=== PATIENT | female | born 1995 | race Hispanic/Latino ===

== ENCOUNTER 2018-02-13 15:03 | Emergency (ER) | payer SELFPAY ==
--- NOTE | 2018-02-13 17:39 | RAD REPORT ---
EXAM DESCRIPTION: CT - Stone Protocol - 02/13/2018 5:27 pm CLINICAL HISTORY: Abdominal pain. Lower abdominal pain. COMPARISON: May 2017 TECHNIQUE: Computed axial tomography of the abdomen pelvis was obtained without oral or IV contrast. Lack of IV and oral contrast limits evaluation of solid organs, bowel, and vessels. Coronal reformat scooter images were obtained and reviewed. All CT scans are performed using dose optimization technique as appropriate and may include automated exposure control or mA/KV adjustment according to patient size. FINDINGS: A renal calculus is not seen. An ureteral calculus is not noted. A bladder calculus is not present. The liver, spleen, pancreas and adrenals appear grossly normal There is no evidence of diverticulitis. The appendix is not clearly seen. An adnexal mass is not displayed. IMPRESSION: Negative for a genitourinary calculus
[2018-02-13 18:07] LABS: Absolute Lymphocytes (CBC) 2.9 K/uL (0.7-4.9); Absolute Monocytes 0.7 K/uL (0.1-1.3); Absolute Neutrophil 7.5 K/uL (1.8-8.0); Basophils % 0.5 % (0-1.3); Eosinophils % 4.4 % (0-4.4); Hematocrit 42.1 % (36.0-45.0); Lymphocytes % 24.4 % (15.3-44.8); MCH 28.9 pg (27.0-35.0); MCV 87.7 fL (80-100); MPV 9.3 fL (7.6-11.3); Monocytes % 6.2 % (3.3-12.3)
[2018-02-13 18:11] LABS: Urine Bacteria <20 /HPF (<20); Urine RBC <5 /HPF (NONE SEEN)
[2018-02-13 18:11] LABS: Urine Blood 1+ (NEG); Urine Glucose NEGATIVE (NEG); Urine Protein NEGATIVE (NEG); Urine pH 6.5 (5.0-7.0)
[2018-02-13 18:12] LABS: Urine Culture Reflex Order NOT NEEDED
[2018-02-13 18:23] LABS: ALT/SGPT 22 U/L (12-78); AST/SGOT 17 U/L (15-37); Albumin 3.8 g/dL (3.4-5.0); Alkaline Phosphatase 101 U/L (45-117); BUN Blood Urea Nitrogen 11 mg/dL (7-18); Bicarbonate 26 mmol/L (21-32); Bilirubin Direct < 0.1 mg/dL (0-0.2); Bilirubin Total 0.3 mg/dL (0.2-1.0); Glucose Level 92 mg/dL (74-106); Lipase 94 U/L (73-393); Potassium 3.7 mmol/L (3.5-5.1); Protein, Total 8.1 g/dL (6.4-8.2); Sodium Level 138 mmol/L (136-145)
--- NOTE | 2018-02-13 19:19 | ER ---
Nurse's Notes [facility] Name: Bianca Madera Age: 22 yrs Sex: Female : 1995 Arrival Date: 02/13/2018 Time: 15:05 Bed 14 Private MD: None, None Diagnosis: Unspecified abdominal pain Presentation: 02/13 15:30 Presenting complaint: Patient states: Low back pain that radiates to abdomen x 2 days. hb Denies urinary s/s. Reports normal bowel habits. Transition of care: patient was not received from another setting of care. Onset of symptoms was February 12, 2018. Risk Assessment: Do you want to hurt yourself or someone else? Patient reports no desire to harm self or others. Initial Sepsis Screen: Does the patient meet any 2 criteria? No. Patient's initial sepsis screen is negative. Does the patient have a suspected source of infection? No. Patient's initial sepsis screen is negative. Care prior to arrival: None. 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 - Social history:: Smoking status: Patient/guardian denies using tobacco. - Ebola Screening: : No symptoms or risks identified at this time. Screenin:17 Abuse screen: Denies threats or abuse. Nutritional screening: No deficits noted. mb3 Tuberculosis screening: No symptoms or risk factors identified. Fall Risk None identified. Assessment: 17:10 General: Appears in no apparent distress. comfortable, Behavior is calm, cooperative, mb3 appropriate for age. Pain: Complains of pain in left low back and right low back. Pain: Pain radiates to right lower quadrant and left lower quadrant. Neuro: No deficits noted. Cardiovascular: No deficits noted. Respiratory: No deficits noted. GI: No deficits noted. : Urine is clear, Reports pain in bilateral flank(s). 18:22 Reassessment: Patient appears in no apparent distress at this time. Patient and/or mb3 family updated on plan of care and expected duration. Pain level reassessed. Patient is alert, oriented x 3, equal unlabored respirations, skin warm/dry/pink. 19:05 Reassessment: Report received from YONG Barbosa. bs1 19:05 General: Appears in no apparent distress. comfortable, Behavior is calm, cooperative, bs1 appropriate for age. Pain: Complains of pain in right low back and left low back Pain radiates to left lower quadrant and right lower quadrant. Neuro: Level of Consciousness is awake, alert, obeys commands. Cardiovascular: Heart tones S1 S2 present Capillary refill < 3 seconds Patient's skin is warm and dry. Respiratory: Airway is patent Trachea midline Respiratory effort is even, unlabored, Respiratory pattern is regular, symmetrical, Breath sounds are clear bilaterally. GI: No signs and/or symptoms were reported involving the gastrointestinal system. : Urine is clear, CVA tenderness noted bilaterally Reports pain in bilateral flank(s). EENT: No signs and/or symptoms were reported regarding the EENT system. Derm: Skin is intact, Skin is pink, warm \T\ dry. normal. Musculoskeletal: Circulation, motion, and sensation intact. Capillary refill < 3 seconds, Range of motion: intact in all extremities. 19:55 Reassessment: Patient appears in no apparent distress at this time. Patient and/or bs1 family updated on plan of care and expected duration. Pain level reassessed. Patient is alert, oriented x 3, equal unlabored respirations, skin warm/dry/pink. Patient denies pain at this time. Patient states feeling better. Vital Signs: 15:32 BP 149 / 96; Pulse 90; Resp 16; Temp 97.4; Pulse Ox 100% on R/A; Weight 58.97 kg; hb Height 5 ft. (152.40 cm); Pain 8/10; 18:18 BP 111 / 79; Pulse 70; Resp 16; Pulse Ox 100% ; mb3 19:18 BP 116 / 93; Pulse 88; Resp 16; Temp 98; Pulse Ox 100% on R/A; Pain 0/10; bs1 15:32 Body Mass Index 25.39 (58.97 kg, 152.40 cm) hb ED Course: 15:05 Patient arrived in ED. sb2 15:05 None, None is Private Physician. sb2 15:32 Triage completed. hb 15:32 Arm band placed on right wrist. hb 17:01 Donny Ramsey NP is PHCP. pm1 17:01 Kenny Bone MD is Attending Physician. pm1 17:07 Familia Bolden, RN is Primary Nurse. mb3 17:18 Patient has correct armband on for positive identification. mb3 17:[address] nj 17:27 CT completed. Patient tolerated procedure well. Patient moved back from CT. nj 17:27 CT Stone Protocol In Process Unspecified. EDMS 17:49 Inserted saline lock: 22 gauge in right antecubital area, using aseptic technique. mb3 Blood collected. 19:57 No provider procedures requiring assistance completed. IV discontinued, bleeding bs1 controlled, No redness/swelling at site. Pressure dressing applied. Administered Medications: 19:30 Drug: GI Cocktail without - (Maalox Suspension 30 ml, Lidocaine Liquid 2 % 15 bs1 ml) Route: PO; 19:57 Follow up: Response: No adverse reaction bs1 Outcome: 19:19 Discharge ordered by MD. pm1 19:57 Discharged to home ambulatory. bs1 19:57 Condition: stable 19:57 Discharge instructions given to patient, Instructed on discharge instructions, follow up and referral plans. medication usage, Demonstrated understanding of instructions, follow-up care, medications, Prescriptions given X 1. 19:58 Patient left the ED. bs1 Signatures: Dispatcher [employer] [facility] Donny Ramsey, [employer] SENIOR TECHNICAL TRAINER pm1 Lamar Howell, RN Enzo Dupree Brittany RN RN bs1 Michaelle Seay 2 Familia Bolden, RN RN mb3
--- NOTE | 2018-02-13 19:19 | EDPHYS ---
Physician Documentation [facility] Name: Bianca Madera Age: 22 yrs Sex: Female : 1995 Arrival Date: 02/13/2018 Time: 15:05 Bed 14 Private MD: None, None ED Physician Kenny Bone HPI: 02/13 18:00 This 22 yrs old Female presents to ER via Ambulatory with complaints of Flank pm1 Pain. 18:00 The patient complains of pain in the left low back and right low back. lower abdomen pm1 bilaterally. Onset: The symptoms/episode began/occurred 3 week(s) ago, worse the past 2-3 days. Modifying factors: The symptoms are alleviated by nothing. the symptoms are aggravated by nothing. Associated signs and symptoms: Pertinent negatives: diarrhea, dysuria, fever, headache, nausea, vomiting. The patient has not experienced similar symptoms in the past. The patient has not recently seen a physician. 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 - Social history:: Smoking status: Patient/guardian denies using tobacco. - Ebola Screening: : No symptoms or risks identified at this time. ROS: 18:00 Constitutional: Negative for fever, chills, and weight loss, Eyes: Negative for injury, pm1 pain, redness, and discharge, ENT: Negative for injury, pain, and discharge, Neck: Negative for injury, pain, and swelling, Cardiovascular: Negative for chest pain, palpitations, and edema, Respiratory: Negative for shortness of breath, cough, wheezing, and pleuritic chest pain. 18:00 : Negative for injury, bleeding, discharge, and swelling, MS/Extremity: Negative for injury and deformity, Skin: Negative for injury, rash, and discoloration, Neuro: Negative for headache, weakness, numbness, tingling, and seizure. 18:00 Abdomen/GI: Positive for abdominal pain, Negative for nausea, vomiting, and diarrhea. 18:00 Back: Positive for flank pain, bilaterally. Exam: 18:00 Constitutional: This is a well developed, well nourished patient who is awake, alert, pm1 and in no acute distress. Head/Face: Normocephalic, atraumatic. Eyes: Pupils equal round and reactive to light, extra-ocular motions intact. Lids and lashes normal. Conjunctiva and sclera are non-icteric and not injected. Cornea within normal limits. Periorbital areas with no swelling, redness, or edema. ENT: Nares patent. No nasal discharge, no septal abnormalities noted. Tympanic membranes are normal and external auditory canals are clear. Oropharynx with no redness, swelling, or masses, exudates, or evidence of obstruction, uvula midline. Mucous membranes moist. Neck: Trachea midline, no thyromegaly or masses palpated, and no cervical lymphadenopathy. Supple, full range of motion without nuchal rigidity, or vertebral point tenderness. No Meningismus. Chest/axilla: Normal chest wall appearance and motion. Nontender with no deformity. No lesions are appreciated. Cardiovascular: Regular rate and rhythm with a normal S1 and S2. No gallops, murmurs, or rubs. Normal PMI, no JVD. No pulse deficits. Respiratory: Lungs have equal breath sounds bilaterally, clear to auscultation and percussion. No rales, rhonchi or wheezes noted. No increased work of breathing, no retractions or nasal flaring. 18:00 Skin: Warm, dry with normal turgor. Normal color with no rashes, no lesions, and no evidence of cellulitis. MS/ Extremity: Pulses equal, no cyanosis. Neurovascular intact. Full, normal range of motion. 18:00 Abdomen/GI: Inspection: abdomen appears normal, Bowel sounds: normal, Palpation: abdomen is soft and non-tender, Indicators: McBurney's point is not tender, Abbott's sign is negative, Rovsing's sign is negative, Obturator sign is negative, Psoas sign is negative. 18:00 Back: pain, of the left low back and right low back. 18:00 Neuro: Orientation: is normal, Motor: moves all fours. Vital Signs: 15:32 BP 149 / 96; Pulse 90; Resp 16; Temp 97.4; Pulse Ox 100% on R/A; Weight 58.97 kg; hb Height 5 ft. (152.40 cm); Pain 8/10; 18:18 BP 111 / 79; Pulse 70; Resp 16; Pulse Ox 100% ; mb3 19:18 BP 116 / 93; Pulse 88; Resp 16; Temp 98; Pulse Ox 100% on R/A; Pain 0/10; bs1 15:32 Body Mass Index 25.39 (58.97 kg, 152.40 cm) hb MDM: 17:03 Patient medically screened. rock 17:15 Data reviewed: vital signs. Data interpreted: Pulse oximetry: on room air is 100 %. pm1 Interpretation: normal. 17:15 ED course: Patient refused pain medications offered in ER. pm1 19:00 Special discussion: Based on the patient's Hx, exam, and Dx evaluation, there is no pm1 indication for emergent surgery or inpatient Tx. It is understood by the patient/guardian that if the Sx's persist or worsen they need to return immediately for re-evaluation. 19:18 Counseling: I had a detailed discussion with the patient and/or guardian regarding: the pm1 historical points, exam findings, and any diagnostic results supporting the discharge/admit diagnosis, lab results, radiology results, the need for outpatient follow up, to return to the emergency department if symptoms worsen or persist or if there are any questions or concerns that arise at home. 02/13 16:10 Order name: Urine Microscopic Only; Complete Time: 18:22 snw 02/13 17:14 Order name: Basic Metabolic Panel; Complete Time: 18:25 pm1 02/13 17:14 Order name: CBC with Diff; Complete Time: 18:22 pm02/13 17:14 Order name: Hepatic Function; Complete Time: 18:25 pm02/13 17:14 Order name: Lipase; Complete Time: 18:25 pm02/13 17:38 Order name: Urine Dipstick--Ancillary (enter results); Complete Time: 18:22 ag 02/13 16:10 Order name: Urine Test (obtain specimen); Complete Time: 17:07 snw 02/13 16:10 Order name: Urine Dipstick-Ancillary (obtain specimen); Complete Time: 17:07 snw 02/13 17:14 Order name: IV Saline Lock; Complete Time: 18:27 pm1 02/13 17:14 Order name: Labs collected and sent; Complete Time: 18:27 pm02/13 17:14 Order name: CT Stone Protocol; Complete Time: 17:42 pm1 02/13 17:38 Order name: Urine --Ancillary (enter results); Complete Time: 18:22 ag Administered Medications: 19:30 Drug: GI Cocktail without - (Maalox Suspension 30 ml, Lidocaine Liquid 2 % 15 bs1 ml) Route: PO; 19:57 Follow up: Response: No adverse reaction bs1 Disposition: 02/14 09:41 Co-signature as Attending Physician, Kenny Bone MD I agree with the assessment and [facility] plan of care. Disposition: 02/13/18 19:19 Discharged to Home. Impression: Unspecified abdominal pain. - Condition is Stable. - Discharge Instructions: Abdominal Pain, Adult. - Prescriptions for Pepcid 20 mg Oral Tablet - take 1 tablet by ORAL route every 12 hours for 10 days; 20 tablet. - Medication Reconciliation Form, Thank You Letter, Work release form form. - Follow up: Emergency Department; When: As needed; Reason: Worsening of condition. Follow up: Private Physician; When: 2 - 3 days; Reason: Recheck today's complaints, Continuance of care, Re-evaluation by your physician. - Problem is new. - Symptoms have improved. Signatures: Dispatcher [employer] [facility]NC Kenny Bone MD MD cha Therrien, Shelly, SPEECH AND LANGUAGE SPECIALIST-C SPEECH AND LANGUAGE SPECIALIST-Csnw Donny Ramsey, SNAG GRINDER SNAG GRINDER pm1 Lamar Howell, RN RN Zeny Ames RN RN bs1 Corrections: (The following items were deleted from the chart) 02/13 19:58 19:19 02/13/2018 19:19 Discharged to Home. Impression: Unspecified abdominal pain. bs1 Condition is Stable. Forms are Medication Reconciliation Form, Thank You Letter, Antibiotic Education, Prescription Opioid Use. Follow up: Emergency Department; When: As needed; Reason: Worsening of condition. Follow up: Private Physician; When: 2 - 3 days; Reason: Recheck today's complaints, Continuance of care, Re-evaluation by your physician. Problem is new. Symptoms have improved. pm1
[2018-02-13] MEDS ORDERED: LIDOCAINE VISCOUS 2% SOLN 15 ML UDC ONE (19:30)
[2018-02-13] MEDS ORDERED: MAGNE/ALUM HYDROXD 30 ML UCUP ONE (19:30)
== END 2018-02-13 19:58 | disposition home or self-care (01) ==
LOC: ER 15:03
DX: R10.9 Unspecified abdominal pain (principal)
CPT/HCPCS: 36415; 74176; 76377; 80048; 80076; 81003; 81015; 81025; 83690; 85025; 99284

== ENCOUNTER 2018-10-06 13:46 | Emergency (ER) | payer SELFPAY ==
--- OUTSIDE RECORDS SUMMARY | 2018-10-06 13:59 | XMS REPORT ---
:1995 [facility] [address] [place] [address] [place] [id number] Care Team Providers Name Role Phone Unavailable Unavailable Unavailable Problems This patient has no known problems. Allergies, Adverse Reactions, Alerts This patient has no known allergies or adverse reactions. Medications This patient has no known medications.
[2018-10-06 16:05] LABS: Absolute Lymphocytes (CBC) 2.1 K/uL (0.7-4.9); Absolute Monocytes 0.9 K/uL (0.1-1.3); Absolute Neutrophil 10.4 K/uL (1.8-8.0); Basophils % 0.3 % (0-1.3); Eosinophils % 1.7 % (0-4.4); Hematocrit 40.1 % (36.0-45.0); Lymphocytes % 15.7 % (15.3-44.8); MPV 8.7 fL (7.6-11.3); Monocytes % 6.3 % (3.3-12.3); RBC Red Blood Cell Count 4.57 M/uL (3.86-4.86)
[2018-10-06 16:31] LABS: BUN Blood Urea Nitrogen 9 mg/dL (7-18); Bicarbonate 23 mmol/L (21-32); Glucose Level 86 mg/dL (74-106); Potassium 3.5 mmol/L (3.5-5.1); Sodium Level 137 mmol/L (136-145)
[2018-10-06 16:36] LABS: Urine Bacteria <20 /HPF (<20); Urine Culture Reflex Order NOT NEEDED; Urine Mucus 1+ /HPF (NONE SEEN); Urine RBC <5 /HPF (NONE SEEN)
[2018-10-06 16:43] LABS: HCG, Quantitative 77511 mIU/mL (1-3)
[2018-10-06] MEDS ORDERED: NA CHLORIDE 0.9% 1,000 ML ONE (17:40)
--- NOTE | 2018-10-06 17:47 | RAD REPORT ---
EXAM DESCRIPTION: US - Matter Luis Alberto Tm 1 - 10/06/2018 5:33 pm CLINICAL HISTORY: with pelvic pain COMPARISON: None FINDINGS: The uterus measures 11 x 8 x 10 centimeters. Within this is a gestational sac and pole measuring 6.6 centimeters. Cardiac activity 148 beats per minute. The placenta is posterior. Cephalic presentation Right ovary is normal in size and echotexture. Left ovary not seen. Right and left adnexa unremarkabl e No significant free fluid IMPRESSION: Single live intrauterine with an estimated gestational age 13 weeks 2 days DALE 04/11/2019
--- NOTE | 2018-10-06 17:53 | ER ---
Nurse's Notes [facility] Name: Bianca Madera Age: 23 yrs Sex: Female : 1995 Arrival Date: 10/06/2018 Time: 13:48 Bed 13 Private MD: None, None Diagnosis: 13 weeks gestation of Presentation: 10/06 14:04 Presenting complaint: Patient states: suprapubic pain, left and right flank pain, back sv pain,burning with urination, headache x 2 days. Pt is 13 weeks . Transition of care: patient was not received from another setting of care. Onset of symptoms was October 04, 2018. Care prior to arrival: None. 14:04 Method Of Arrival: Ambulatory sv 14:04 Acuity: BELLA 3 sv 18:40 Risk Assessment: Do you want to hurt yourself or someone else? Patient reports no aj1 desire to harm self or others. Initial Sepsis Screen: Does the patient meet any 2 criteria? No. Patient's initial sepsis screen is negative. Does the patient have a suspected source of infection? No. Patient's initial sepsis screen is negative. Triage Assessment: 14:04 General: Appears in no apparent distress. uncomfortable, well developed, Behavior is sv calm, cooperative, appropriate for age. Pain: Complains of pain in suprapubic area, anterior aspect of right lateral abdomen and anterior aspect of left lateral abdomen Pain currently is 10 out of 10 on a pain scale. Neuro: Level of Consciousness is awake, alert, obeys commands, Oriented to person, place, time, situation, Gait is steady. Respiratory: Respiratory effort is even, unlabored, Respiratory pattern is regular, symmetrical. GI: Reports lower abdominal pain, upper abdominal pain. : Reports burning with urination. X RAY CONSULTANT: 15:51 1, 0, Living 0, LMP 07/05/2018 kb Historical: - Allergies: 14:05 No Known Allergies; sv - PMHx: 14:05 None; sv - PSHx: 14:05 None; sv - Immunization history:: Adult Immunizations up to date. - Social history:: Smoking status: Patient/guardian denies using tobacco. - Ebola Screening: : No symptoms or risks identified at this time. Screenin:10 Abuse screen: Denies threats or abuse. Denies injuries from another. Nutritional aj1 screening: No deficits noted. Tuberculosis screening: No symptoms or risk factors identified. 18:40 Fall Risk None identified. aj1 Assessment: 16:10 General: Appears in no apparent distress. comfortable, Behavior is calm, cooperative, aj1 appropriate for age. Pain: Complains of pain in left lower quadrant and right lower quadrant and suprapubic area. Neuro: Level of Consciousness is awake, alert, obeys commands, Oriented to person, place, time, situation. Cardiovascular: Patient's skin is warm and dry. Respiratory: Airway is patent Respiratory effort is even, unlabored, Respiratory pattern is regular, symmetrical. GI: Abdomen is non-distended, Bowel sounds present X 4 quads. Abd is soft X 4 quads. : No signs and/or symptoms were reported regarding the genitourinary system. EENT: No signs and/or symptoms were reported regarding the EENT system. Derm: No signs and/or symptoms reported regarding the dermatologic system. Skin is pink, warm \T\ dry. normal. Musculoskeletal: No signs and/or symptoms reported regarding the musculoskeletal system. Circulation, motion, and sensation intact. 17:15 Reassessment: Patient appears in no apparent distress at this time. No changes from aj1 previously documented assessment. Patient and/or family updated on plan of care and expected duration. Pain level reassessed. Patient is alert, oriented x 3, equal unlabored respirations, skin warm/dry/pink. 18:15 Reassessment: Patient appears in no apparent distress at this time. No changes from aj1 previously documented assessment. Patient and/or family updated on plan of care and expected duration. Pain level reassessed. Patient is alert, oriented x 3, equal unlabored respirations, skin warm/dry/pink. 18:41 Reassessment: Patient discharge pending completion of IV fluids, patient given aj1 discharge instructions and signed discharge paper work, patient needs IV discontinued when fluids are completed. 19:10 Reassessment: Patient appears in no apparent distress at this time. Patient and/or aj1 family updated on plan of care and expected duration. Pain level reassessed. Patient is alert, oriented x 3, equal unlabored respirations, skin warm/dry/pink. Vital Signs: 14:05 BP 120 / 89; Pulse 87; Resp 18; Temp 98.4; Pulse Ox 100% ; Weight 58.97 kg; Height 5 sv ft. 1 in. (154.94 cm); Pain 10/10; 16:10 BP 127 / 65; Pulse 92; Resp 18; Pulse Ox 97% ; aj1 18:15 BP 116 / 75; Pulse 72; Resp 18; Pulse Ox 97% ; aj1 19:20 BP 108 / 79; Pulse 84; Resp 16; Pulse Ox 100% on R/A; aj1 14:05 Body Mass Index 24.56 (58.97 kg, 154.94 cm) sv ED Course: 13:48 Patient arrived in ED. mr 13:49 None, None is Private Physician. mr 14:05 Triage completed. sv 14:06 Arm band placed on. sv 15:42 Maria De Jesus Mata FNP-C is PHCP. kb 15:42 Kenny Bone MD is Attending Physician. kb 16:00 Bailey Abbasi, RN is Primary Nurse. aj1 16:10 Patient has correct armband on for positive identification. Bed in low position. Call aj1 light in reach. Side rails up X 1. 16:10 No provider procedures requiring assistance completed. Inserted saline lock: 20 gauge aj1 in right antecubital area, using aseptic technique. 17:29 Ultrasound completed. Patient tolerated well. sg3 17:33 Matter Eval Tm 1 In Process Unspecified. EDMS 19:20 IV discontinued, intact, bleeding controlled. aj1 Administered Medications: 17:28 Drug: NS 0.9% 1000 ml Route: IV; Rate: 1000 ml; Site: right antecubital; aj1 19:20 Follow up: IV Status: Completed infusion; IV Intake: 1000ml aj1 Intake: 19:20 IV: 1000ml; Total: 1000ml. aj1 Outcome: 17:52 Discharge ordered by MD. kb 18:40 Condition: good aj1 18:40 Discharge instructions given to patient, Instructed on discharge instructions, follow up and referral plans. Demonstrated understanding of instructions. 19:20 Discharged to home ambulatory. aj1 19:41 Patient left the ED. aj1 Signatures: Dispatcher [employer] EDMS Maria De Jesus Mata FNP-C FNP-Ckb Johnson, Angela RN YONG ajLesley Joya RN YONG lindo Xavier Yolis Escamilla sg3 Corrections: (The following items were deleted from the chart) 14:06 14:05 Resp 18bpm; Pulse Ox 100%; Temp 98.4F; 58.97 kg; Height 5 ft. 1 in.; BMI: 24.5; sv Pain 10; sv
--- NOTE | 2018-10-06 17:53 | EDPHYS ---
Physician Documentation [facility] Name: Bianca Madera Age: 23 yrs Sex: Female : 1995 Arrival Date: 10/06/2018 Time: 13:48 Bed 13 Private MD: None, None ED Physician Kenny Bone HPI: 10/06 15:51 This 23 yrs old Female presents to ER via Ambulatory with complaints of 13 wks kb , Abdominal Pain, Headache. 15:51 The patient presents to the emergency department with abdominal pain, of the right kb lower quadrant and left lower quadrant, that started 10 day(s) ago. course: care: at a clinic, Leakage of Fluid: none appreciated, Ultrasound: the patient has not had an ultrasound, Risk/complications: no obvious risks or complications are appreciated. Previous pregnancies: the patient has never been . Associated signs and symptoms: Pertinent positives: abdominal pain, Pertinent negatives: chest pain, diarrhea, dysuria, fever, frequency, nausea, ruptured membranes, seizure, shortness of breath, vaginal bleeding, vaginal discharge, vomiting. The patient has not experienced similar symptoms in the past. The patient has not recently seen a physician. 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 - Social history:: Smoking status: Patient/guardian denies using tobacco. - Ebola Screening: : No symptoms or risks identified at this time. ROS: 15:48 Constitutional: Negative for fever, chills, and weight loss, ENT: Negative for injury, kb pain, and discharge, Neck: Negative for injury, pain, and swelling, Cardiovascular: Negative for chest pain, palpitations, and edema, Respiratory: Negative for shortness of breath, cough, wheezing, and pleuritic chest pain, Back: Negative for injury and pain, : Negative for injury, bleeding, discharge, and swelling, MS/Extremity: Negative for injury and deformity, Skin: Negative for injury, rash, and discoloration. 15:48 Abdomen/GI: Positive for abdominal pain, Negative for nausea, vomiting, and diarrhea. 15:48 Neuro: Positive for headache, Negative for altered mental status, dizziness, gait disturbance, hearing loss, loss of consciousness, numbness, seizure activity, speech changes, syncope, near syncope, tingling, tinnitus, tremor, visual changes, weakness. Exam: 15:50 Constitutional: This is a well developed, well nourished patient who is awake, alert, kb and in no acute distress. Head/Face: Normocephalic, atraumatic. Chest/axilla: Normal chest wall appearance and motion. Nontender with no deformity. No lesions are appreciated. Cardiovascular: Regular rate and rhythm with a normal S1 and S2. No gallops, murmurs, or rubs. Normal PMI, no JVD. No pulse deficits. Respiratory: Lungs have equal breath sounds bilaterally, clear to auscultation and percussion. No rales, rhonchi or wheezes noted. No increased work of breathing, no retractions or nasal flaring. Back: No spinal tenderness. No costovertebral tenderness. Full range of motion. Skin: Warm, dry with normal turgor. Normal color with no rashes, no lesions, and no evidence of cellulitis. MS/ Extremity: Pulses equal, no cyanosis. Neurovascular intact. Full, normal range of motion. Neuro: Awake and alert, GCS 15, oriented to person, place, time, and situation. Cranial nerves II-XII grossly intact. Motor strength 5/5 in all extremities. Sensory grossly intact. Cerebellar exam normal. Normal gait. 15:50 Abdomen/GI: Inspection: abdomen appears normal, Bowel sounds: normal, in all quadrants, Palpation: soft, in all quadrants, moderate abdominal tenderness, in the right lower quadrant and left lower quadrant. Vital Signs: 14:05 BP 120 / 89; Pulse 87; Resp 18; Temp 98.4; Pulse Ox 100% ; Weight 58.97 kg; Height 5 sv ft. 1 in. (154.94 cm); Pain 10/10; 16:10 BP 127 / 65; Pulse 92; Resp 18; Pulse Ox 97% ; aj1 18:15 BP 116 / 75; Pulse 72; Resp 18; Pulse Ox 97% ; aj1 19:20 BP 108 / 79; Pulse 84; Resp 16; Pulse Ox 100% on R/A; aj1 14:05 Body Mass Index 24.56 (58.97 kg, 154.94 cm) sv MDM: 15:43 Patient medically screened. kb 15:50 Data reviewed: vital signs, nurses notes. Data interpreted: Pulse oximetry: on room air kb is 100 %. Interpretation: normal. 17:52 Counseling: I had a detailed discussion with the patient and/or guardian regarding: the kb historical points, exam findings, and any diagnostic results supporting the discharge/admit diagnosis, lab results, radiology results, the need for outpatient follow up, an OB/Gyne specialist, to return to the emergency department if symptoms worsen or persist or if there are any questions or concerns that arise at home. 10/06 14:12 Order name: Urine Culture snw 10/06 14:12 Order name: Urine Microscopic Only; Complete Time: 16:45 snw 10/06 14:12 Order name: Flu; Complete Time: 15:43 snw 10/06 15:47 Order name: Quantitative Hcg; Complete Time: 16:45 kb 10/06 15:47 Order name: Abo/rh Typing; Complete Time: 16:45 kb 10/06 15:47 Order name: Basic Metabolic Panel; Complete Time: 16:45 kb 10/06 14:12 Order name: Urine Dipstick-Ancillary (obtain specimen); Complete Time: 16:46 snw 10/06 15:47 Order name: CBC with Diff; Complete Time: 16:24 kb 10/06 15:49 Order name: Urine Dipstick--Ancillary (enter results); Complete Time: 18:12 eb 10/06 15:49 Order name: Urine --Ancillary (enter results); Complete Time: 18:12 eb 10/06 17:33 Order name: ABO/RH no charge; Complete Time: 17:34 EDMS 10/06 17:33 Order name: Matter Eval Tm 1; Complete Time: 17:51 EDMS 10/06 15:47 Order name: IV Saline Lock; Complete Time: 16:46 kb 10/06 15:47 Order name: Labs collected and sent; Complete Time: 16:46 kb 10/06 15:47 Order name: NPO; Complete Time: 16:46 kb Administered Medications: 17:28 Drug: NS 0.9% 1000 ml Route: IV; Rate: 1000 ml; Site: right antecubital; aj1 19:20 Follow up: IV Status: Completed infusion; IV Intake: 1000ml aj1 Disposition: 10/06/18 17:52 Discharged to Home. Impression: 13 weeks gestation of . - Condition is Stable. - Discharge Instructions: Second Trimester of , [id number]. - Medication Reconciliation Form, Thank You Letter, Antibiotic Education, Prescription Opioid Use form. - Follow up: Emergency Department; When: As needed; Reason: Worsening of condition. Follow up: Private Physician; When: 2 - 3 days; Reason: Recheck today's complaints, Continuance of care, Re-evaluation by your physician. Addendum: 10/09/2018 07:15 Co-signature as Attending Physician, Kenny Bone MD I agree with the assessment and c crow plan of care. Signatures: Dispatcher [employer] [facility] Maria De Jesus Mata, CLEAN OUT DRILLER HELPER-C CLEAN OUT DRILLER HELPER-Ckb Bailey Abbasi RN YONG aj1 Lesley Higgins RN Kenny Melendez MD MD cha Therrien, Shelly, CLEAN OUT DRILLER HELPER-C CLEAN OUT DRILLER HELPER-Csnw Corrections: (The following items were deleted from the chart) 10/06 17:33 16:46 Transvaginal Ob+US.RAD.BRZ ordered. [facility] EDMA 19:41 17:52 10/06/2018 17:52 Discharged to Home. Impression: 13 weeks gestation of . aj1 Condition is Stable. Forms are Medication Reconciliation Form, Thank You Letter, Antibiotic Education, Prescription Opioid Use. Follow up: Emergency Department; When: As needed; Reason: Worsening of condition. Follow up: Private Physician; When: 2 - 3 days; Reason: Recheck today's complaints, Continuance of care, Re-evaluation by your physician. kb
[2018-10-06 18:11] LABS: Urine Blood TRACE (NEG); Urine Glucose 2+ (NEG); Urine Protein 1+ (NEG); Urine Specific Gravity 1.025 (1.005-1.030)
== END 2018-10-06 19:41 | disposition home or self-care (01) ==
LOC: ER 13:46
DX: O26.891 Other specified pregnancy related conditions, first trimester (principal); R10.31 Right lower quadrant pain; R10.32 Left lower quadrant pain; Z3A.13 13 weeks gestation of pregnancy
CPT/HCPCS: 36415; 76801; 80048; 81003; 81015; 81025; 84702; 85025; 86900; 86901; 87086; 87088; 87804; 96360; 96361; 99284; J7030

== ENCOUNTER 2022-06-12 17:31 | Emergency (ER) | payer OTHER, SELFPAY ==
--- OUTSIDE RECORDS SUMMARY | 2022-06-12 17:38 | XMS REPORT | Continuity of Care Document ---
:1995 Author Organization [facility] t Address [address] [place] [address] Care Team Providers Name Role Phone PEÑA F [facility] Primary Care P hysician Unavailable PJ MARTINEZ Attending Clinician Unavailable NEAH MÉNDEZ Attending Clinician Unavailable Dev Neha JOSEPH Attending Clinician [phone] [facility], [facility] Attending Clinician Unavailable 1, [facility] Room Attending Clinician Unavailable Bruno Llamas MD Attending Clinician [phone] BRUNO LLAMAS Attending Clinician Unavailable STEPHANIE BRADLEY Attending Clinician Unavailable Yanira Brown DO Attending Clinician Stephanie Bradley MD Attending Clinician CHERYL JJ Attending Clinician Unavailable CHERYL JJ Attending Clinician Unavailable Adrián Willson MD Attending Clinician Cheryl Jj MD Attending Clinician Shelly Doll Attending Clinician Unavailable ADRIÁN WILLSON Attending Clinician Unavailable Lab, [facility] Attending Clinician Unavailable 2, [facility] Room Attending Clinician Unavailable Jessica Blackburn Attending Clinician 1, [facility] Room Attending Clinician Unavailable Sorin Keller MD, Sandrine Attending Clinician [phone] SANDRINE KAPLAN Attending Clinician Unavailable IRASEMA MCDANIELS Attending Clinician Unavailable Irasema Mcdaniels MD Attending Clinician Doctor Unassigned, [place] Attending Clinician Unavailable ANDRE NORIEGA Attending Clinician Unavailable Andre Noriega MD Attending Clinician YANIRA BROWN Attending Clinician Unavailable Roberto Dumas Attending Clinician Saw Jj DO Attending Clinician PATITO ACEVEDO Attending Clinician Unavailable Lab, [facility] Attending Clinician Unavailable Birgit Borges Attending Clinician BIRGIT ESCOTO Attending Clinician Unavailable Noah Mcneill Attending Clinician Collins Lees MD Attending Clinician Kesha Mccartney MD Attending Clinician Patito Pate Attending Clinician Ultrasound, Ang-M[facility] Attending Clinician Unavailable STEPHANIE BRADLEY Admitting Clinician Unavailable Stephanie Bradley MD Admitting Clinician ANDRE NORIEGA Admitting Clinician Unavailable IRASEMA MCDANIELS Admitting Clinician Unavailable Collins Lees MD Admitting Clinician Kesha Mccartney MD Admitting Clinician Payers Payer Name Policy Type Policy Number Effective Date Expiration Date S kassiece MEDICAID ALIEN PENDING 2022 PENDING 00:00:00 BLUE ESSENTIALS O [id number] 2020 00:00:00 [facility] [id number] 2016 PLAN MOM CHIP LOW 00:00:00 [employer] [facility] [id number] 2021 CHIP 00:00:00 Problems Condition Condition Condition Status Onset Resolution Last Treating Co mments Source Name Details Category Date Date Treatment Clinician Date Abnormal Abnormal Disease Active 2021-07 Overview: Un bette maternal maternal 1-07 Formattin ity of glucose glucose 00:00: g of this [place] tolerance, tolerance, 00 note Me dical antepartum antepartum might be Branch different from the original. Passed 3hr Known Known Disease Active 2021-07 Overview: Univer s 0-07 Formattin ity of anomaly, anomaly, 00:00: g of this [place] as antepartum antepartum 00 note Me dical might be Branch different from the original. Right hand missing on usg Pain of Pain of Disease Active Univers round round 8-12 ity of ligament ligament 00:00: [place] during during 00 Medical Bran ch Supervisio Supervisio Disease Active U nivers n of n of 5-24 [place] of high-risk [place] [facility] Multiparit Multiparit Disease Active U nivers y y 5-24 ity of 00:00: [place] 00 [facility] Over Over Disease Active 2018-07 Univers weight weight 0-22 ity of 00:00: [place] 00 [facility] Papanicola Papanicola Disease Active 2016-07 Overview : Univers ou smear ou smear 0-03 Formattin ity of of cervix of cervix 00:00: [place] with low with low 00 note Medica l grade grade might be Branch squamous squamous different intraepith intraepith from the elial elial original. lesion lesion Needs (LGSIL) (LGSIL) repeat pap in 1 year (2018) Hepatitis Hepatitis Disease Active 2012-07 Overview: Univers C antibody C antibody 2-30 Formattin ity of test test 00:00: g of this [place] positive positive 00 note Medica l might be Branch different from the original. 06/2013: Pt with + HCV Ab with negative PCR. Consult with Dr Francois. Pt has resolved infection , Pt needs to RTC in 3 months to repeat HCV PCR and if negative x 2, then pt does not need further f/u. Allergies, Adverse Reactions, Alerts Allergy Allergy Status Severity Reaction(s) Onset Inactive Treating Comm ents Source Name Type Date Date Clinician Shrimp Propensi Active Anaphylaxis Uni vers ty to 5-24 ity of adverse 00:00: [place] reaction 00 Medical s Branch SHRIMP DRUG Active Anaphylaxis Unive rs INGREDI 5-24 ity of 00:00: [address] Social History Social Habit Start Date Stop Date Quantity Comments Source ASSERTION 2021-12-01 University 00:00:00 [facility] Exposure to 2022-05-28 2022-06-07 Not sure University SARS-CoV-2 00:00:00 08:11:00 [facility] (event) Branch Alcohol intake 2022-05-31 2022-05-31 Current University of 00:00:00 00:00:00 non-drinker of [facility] alcohol (finding) [place] Tobacco use and 2022-03-05 2022-03-05 Smokeless tobacco Un iversity of exposure 00:00:00 00:00:00 non-user [facility] Sex Ass[birth year] At [birth year] Universit y of 00:00:00 00:00:00 [facility] Smoking Status Start Date Stop Date Source Never smoked tobacco [facility] Medications Ordered Filled Start Stop Current Ordering Indication Dosage Frequency Signature Comments Components Source Medication Medication Date Date Medication? Clinician (SIG) Name Name PNV 67-iron 2021-07 Yes [id number] 1{each} Take 1 Univers ps-folate 0-14 Each by ity of no.1-dha 00:00: mouth [place] (VITAFOL 00 daily. Medical ULTRA) 29 Branch mg iron- 1 mg-200 mg Cap PNV 67-iron 2021-07 Yes [id number] 1{each} Take 1 Univers ps-folate 0-14 Each by ity of no.1-dha 00:00: mouth [place] (VITAFOL 00 daily. Medical ULTRA) 29 Branch mg iron- 1 mg-200 mg Cap PNV 67-iron 2021-07 Yes [id number] 1{each} Take 1 Univers ps-folate 0-14 Each by ity of no.1-dha 00:00: mouth [place] (VITAFOL 00 daily. Medical ULTRA) 29 Branch mg iron- 1 mg-200 mg Cap PNV 67-iron 2021-07 Yes [id number] 1{each} Take 1 Univers ps-folate 0-14 Each by ity of no.1-dha 00:00: mouth [place] (VITAFOL 00 daily. Medical ULTRA) 29 Branch mg iron- 1 mg-200 mg Cap PNV 67-iron 2021-07 Yes [id number] 1{each} Take 1 Univers ps-folate 0-14 Each by ity of no.1-dha 00:00: mouth [place] (VITAFOL 00 daily. Medical ULTRA) 29 Branch mg iron- 1 mg-200 mg Cap PNV 67-iron 2021-07 Yes [id number] 1{each} Take 1 Univers ps-folate 0-14 Each by ity of no.1-dha 00:00: mouth [place] (VITAFOL 00 daily. Medical ULTRA) 29 Branch mg iron- 1 mg-200 mg Cap PNV 67-iron 2021-07 Yes [id number] 1{each} Take 1 Univers ps-folate 0-14 Each by ity of no.1-dha 00:00: mouth [place] (VITAFOL 00 daily. Medical ULTRA) 29 Branch mg iron- 1 mg-200 mg Cap PNV 67-iron 2021-07 Yes [id number] 1{each} Take 1 Univers ps-folate 0-14 Each by ity of no.1-dha 00:00: mouth [place] (VITAFOL 00 daily. Medical ULTRA) 29 Branch mg iron- 1 mg-200 mg Cap PNV 67-iron 2021-07 Yes [id number] 1{each} Take 1 Univers ps-folate 0-14 Each by ity of no.1-dha 00:00: mouth [place] (VITAFOL 00 daily. Medical ULTRA) 29 Branch mg iron- 1 mg-200 mg Cap PNV 67-iron 2021-07 Yes [id number] 1{each} Take 1 Univers ps-folate 0-14 Each by ity of no.1-dha 00:00: mouth [place] (VITAFOL 00 daily. Medical ULTRA) 29 Branch mg iron- 1 mg-200 mg Cap PNV 67-iron 2021-07 Yes [id number] 1{each} Take 1 Univers ps-folate 0-14 Each by ity of no.1-dha 00:00: mouth [place] (VITAFOL 00 daily. Medical ULTRA) 29 Branch mg iron- 1 mg-200 mg Cap PNV 67-iron 2021-07 Yes [id number] 1{each} Take 1 Univers ps-folate 0-14 Each by ity of no.1-dha 00:00: mouth [place] (VITAFOL 00 daily. Medical ULTRA) 29 Branch mg iron- 1 mg-200 mg Cap No known 2021-07 No No known Unive rs medications 0-07 medication it y of 13:43: s [address] No known 2021-1 No No known Unive rs medications 0-07 medication it y of 13:43: s [address] No known 2021-1 No No known Unive rs medications 0-07 medication it y of 13:43: s [address] No known 2021-0 No No known Unive rs medications 9-24 medication it y of 12:37: s [address] No known 2021-0 No No known Unive rs medications 9-09 medication it y of 13:11: s [address] No known 2021-0 No No known Unive rs medications 9-09 medication it y of 13:11: [address] No known 2021-0 No No known Unive rs medications 9- medication it y of 13:11: s [address] Immunizations Ordered Immunization Filled Immunization Date Status Commen ts Source Name Name TD 2022-06-07 Completed [facility] 00:00:00 [facility] TDAP 2022-06-07 Completed [facility] 00:00:00 [facility] Influenza Virus 2020-05-22 Completed Universit y of Vaccine Quad .5 mL 00:00:00 [place] [facility] 6+ MO Branch Influenza Virus 2020-05-22 Completed Universit y of Vaccine Quad .5 mL 00:00:00 [facility] 6+ MO Branch Influenza Virus 2020-05-22 Completed Universit y of Vaccine Quad .5 mL 00:00:00 [place] [facility] 6+ MO Branch Influenza Virus 2020-05-22 Completed Universit y of Vaccine Quad .5 mL 00:00:00 [place] [facility] IM 6+ MO Branch Influenza Virus 2020-05-22 Completed Universit y of Vaccine Quad .5 mL 00:00:00 [place] [facility] IM 6+ MO Branch Influenza Virus 2020-05-22 Completed Universit y of Vaccine Quad .5 mL 00:00:00 [place] [facility] 6+ MO Branch Influenza Virus 2020-05-22 Completed Universit y of Vaccine Quad .5 mL 00:00:00 [place] [facility] IM 6+ MO Branch Influenza Virus 2020-05-22 Completed Universit y of Vaccine Quad .5 mL 00:00:00 [place] [facility] IM 6+ MO Branch Influenza Virus 2020-05-22 Completed Universit y of Vaccine Quad .5 mL 00:00:00 [place] [facility] 6+ MO Branch Influenza Virus 2020-05-22 Completed Universit y of Vaccine Quad .5 mL 00:00:00 [place] [facility] IM 6+ MO Branch Influenza Virus 2020-05-22 Completed Universit y of Vaccine Quad .5 mL 00:00:00 [place] [facility] IM 6+ MO Branch Influenza Virus 2020-05-22 Completed Universit y of Vaccine Quad .5 mL 00:00:00 [place] [facility] 6+ MO Branch Influenza Virus 2020-05-22 Completed Universit y of Vaccine Quad .5 mL 00:00:00 [place] [facility] IM 6+ MO Branch Influenza Virus 2020-05-22 Completed Universit y of Vaccine Quad .5 mL 00:00:00 [place] [facility] 6+ MO Branch Influenza Virus 2020-05-22 Completed Universit y of Vaccine Quad .5 mL 00:00:00 [place] [facility] IM 6+ MO Branch Influenza Virus 2020-05-22 Completed Universit y of Vaccine Quad .5 mL 00:00:00 [place] [facility] 6+ MO Branch Influenza Virus 2020-05-22 Completed Universit y of Vaccine Quad .5 mL 00:00:00 [place] [facility] IM 6+ MO Branch Influenza Virus 2020-05-22 Completed Universit y of Vaccine Quad .5 mL 00:00:00 [place] [facility] IM 6+ MO Branch Influenza Virus 2020-05-22 Completed Universit y of Vaccine Quad .5 mL 00:00:00 [place] [facility] IM 6+ MO Branch Influenza Virus 2019-05-15 Completed Universit y of Vaccine Quad .5 mL 00:00:00 [place] [facility] IM 6+ MO Branch Influenza Virus 2019-05-15 Completed Universit y of Vaccine Quad .5 mL 00:00:00 [place] [facility] IM 6+ MO Branch Influenza Virus 2019-05-15 Completed Universit y of Vaccine Quad .5 mL 00:00:00 [place] [facility] IM 6+ MO Branch Influenza Virus 2019-05-15 Completed Universit y of Vaccine Quad .5 mL 00:00:00 [place] [facility] IM 6+ MO Branch Influenza Virus 2019-05-15 Completed Universit y of Vaccine Quad .5 mL 00:00:00 [place] [facility] 6+ MO Branch Influenza Virus 2019-05-15 Completed Universit y of Vaccine Quad .5 mL 00:00:00 [place] [facility] IM 6+ MO Branch Influenza Virus 2019-05-15 Completed Universit y of Vaccine Quad .5 mL 00:00:00 [place] [facility] IM 6+ MO Branch Influenza Virus 2019-05-15 Completed Universit y of Vaccine Quad .5 mL 00:00:00 [place] [facility] IM 6+ MO Branch Influenza Virus 2019-05-15 Completed Universit y of Vaccine Quad .5 mL 00:00:00 [place] [facility] IM 6+ MO Branch Influenza Virus 2019-05-15 Completed Universit y of Vaccine Quad .5 mL 00:00:00 [place] [facility] IM 6+ MO Branch Influenza Virus 2019-05-15 Completed Universit y of Vaccine Quad .5 mL 00:00:00 [place] [facility] IM 6+ MO Branch Influenza Virus 2019-05-15 Completed Universit y of Vaccine Quad .5 mL 00:00:00 [place] [facility] IM 6+ MO Branch Influenza Virus 2019-05-15 Completed Universit y of Vaccine Quad .5 mL 00:00:00 [place] [facility] IM 6+ MO Branch Influenza Virus 2019-05-15 Completed Universit y of Vaccine Quad .5 mL 00:00:00 [place] [facility] 6+ MO Branch Influenza Virus 2019-05-15 Completed Universit y of Vaccine Quad .5 mL 00:00:00 [place] [facility] IM 6+ MO Branch Influenza Virus 2019-05-15 Completed Universit y of Vaccine Quad .5 mL 00:00:00 [place] [facility] 6+ MO Branch Influenza Virus 2019-05-15 Completed Universit y of Vaccine Quad .5 mL 00:00:00 [place] [facility] 6+ MO Branch Influenza Virus 2019-05-15 Completed Universit y of Vaccine Quad .5 mL 00:00:00 [place] [facility] 6+ MO Branch Influenza Virus 2019-05-15 Completed Universit y of Vaccine Quad .5 mL 00:00:00 [place] [facility] 6+ MO Branch TDAP 2019-01-24 Completed University of 00:00:00 [facility] TDAP 2019-01-24 Completed University of 00:00:00 [place] [facility] [place] TDAP 2019-01-24 Completed University of 00:00:00 [place] [facility] TDAP 2019-01-24 Completed University of 00:00:00 [place] [facility] TDAP 2019-01-24 Completed University of 00:00:00 [facility] Branch TDAP 2019-01-24 Completed University of 00:00:00 [facility] TDAP 2019-01-24 Completed University of 00:00:00 [facility] TDAP 2019-01-24 Completed University of 00:00:00 [facility] TDAP 2019-01-24 Completed University of 00:00:00 [facility] TDAP 2019-01-24 Completed University of 00:00:00 [facility] TDAP 2019-01-24 Completed University of 00:00:00 [facility] TDAP 2019-01-24 Completed University of 00:00:00 [facility] TDAP 2019-01-24 Completed University of 00:00:00 [facility] TDAP 2019-01-24 Completed University of 00:00:00 [facility] TDAP 2019-01-24 Completed University of 00:00:00 [facility] TDAP 2019-01-24 Completed University of 00:00:00 [facility] TDAP 2019-01-24 Completed University of 00:00:00 [facility] TDAP 2019-01-24 Completed University of 00:00:00 [facility] TDAP 2019-01-24 Completed University of 00:00:00 [facility] Meningococcal 2012-06-26 Completed University of Vaccine 00:00:00 [facility] Influenza Virus 2012-06-26 Completed Universit y of Vaccine Nasal 00:00:00 [facility] Meningococcal 2012-06-26 Completed University of Vaccine 00:00:00 [facility] Influenza Virus 2012-06-26 Completed Universit y of Vaccine Nasal 00:00:00 [facility] Meningococcal 2012-06-26 Completed University of Vaccine 00:00:00 [facility] Influenza Virus 2012-06-26 Completed Universit y of Vaccine Nasal 00:00:00 [facility] Meningococcal 2012-06-26 Completed University of Vaccine 00:00:00 [facility] Influenza Virus 2012-06-26 Completed Universit y of Vaccine Nasal 00:00:00 [facility] Meningococcal 2012-06-26 Completed University of Vaccine 00:00:00 [facility] Influenza Virus 2012-06-26 Completed Universit y of Vaccine Nasal 00:00:00 [facility] Meningococcal 2012-06-26 Completed University of Vaccine 00:00:00 [facility] Influenza Virus 2012-06-26 Completed Universit y of Vaccine Nasal 00:00:00 [facility] Meningococcal 2012-06-26 Completed University of Vaccine 00:00:00 [facility] Influenza Virus 2012-06-26 Completed Universit y of Vaccine Nasal 00:00:00 [facility] Meningococcal 2012-06-26 Completed University of Vaccine 00:00:00 [facility] Influenza Virus 2012-06-26 Completed Universit y of Vaccine Nasal 00:00:00 [facility] Meningococcal 2012-06-26 Completed University of Vaccine 00:00:00 [facility] Influenza Virus 2012-06-26 Completed Universit y of Vaccine Nasal 00:00:00 [facility] Meningococcal 2012-06-26 Completed University of Vaccine 00:00:00 [facility] Influenza Virus 2012-06-26 Completed Universit y of Vaccine Nasal 00:00:00 [facility] Meningococcal 2012-06-26 Completed University of Vaccine 00:00:00 [facility] Influenza Virus 2012-06-26 Completed Universit y of Vaccine Nasal 00:00:00 [facility] Meningococcal 2012-06-26 Completed University of Vaccine 00:00:00 [facility] Influenza Virus 2012-06-26 Completed Universit y of Vaccine Nasal 00:00:00 [facility] Meningococcal 2012-06-26 Completed University of Vaccine 00:00:00 [facility] Influenza Virus 2012-06-26 Completed Universit y of Vaccine Nasal 00:00:00 [facility] Meningococcal 2012-06-26 Completed University of Vaccine 00:00:00 [facility] Influenza Virus 2012-06-26 Completed Universit y of Vaccine Nasal 00:00:00 [facility] Meningococcal 2012-06-26 Completed University of Vaccine 00:00:00 [facility] Influenza Virus 2012-06-26 Completed Universit y of Vaccine Nasal 00:00:00 [facility] Meningococcal 2012-06-26 Completed University of Vaccine 00:00:00 [facility] Influenza Virus 2012-06-26 Completed Universit y of Vaccine Nasal 00:00:00 [facility] Meningococcal 2012-06-26 Completed University of Vaccine 00:00:00 [facility] Influenza Virus 2012-06-26 Completed Universit y of Vaccine Nasal 00:00:00 [facility] Meningococcal 2012-06-26 Completed University of Vaccine 00:00:00 [facility] Influenza Virus 2012-06-26 Completed Universit y of Vaccine Nasal 00:00:00 [facility] Meningococcal 2012-06-26 Completed University of Vaccine 00:00:00 [facility] Influenza Virus 2012-06-26 Completed Universit y of Vaccine Nasal 00:00:00 [facility] Influenza Virus 2011-06-14 Completed Universit y of Vaccine Nasal 00:00:00 [facility] Influenza Virus 2011-06-14 Completed Universit y of Vaccine Nasal 00:00:00 [facility] Influenza Virus 2011-06-14 Completed Universit y of Vaccine Nasal 00:00:00 [facility] Influenza Virus 2011-06-14 Completed Universit y of Vaccine Nasal 00:00:00 [facility] Influenza Virus 2011-06-14 Completed Universit y of Vaccine Nasal 00:00:00 [facility] Influenza Virus 2011-06-14 Completed Universit y of Vaccine Nasal 00:00:00 [facility] Influenza Virus 2011-06-14 Completed Universit y of Vaccine Nasal 00:00:00 [facility] Influenza Virus 2011-06-14 Completed Universit y of Vaccine Nasal 00:00:00 [facility] Influenza Virus 2011-06-14 Completed Universit y of Vaccine Nasal 00:00:00 [facility] Influenza Virus 2011-06-14 Completed Universit y of Vaccine Nasal 00:00:00 [facility] Influenza Virus 2011-06-14 Completed Universit y of Vaccine Nasal 00:00:00 [facility] Influenza Virus 2011-06-14 Completed Universit y of Vaccine Nasal 00:00:00 [facility] Influenza Virus 2011-06-14 Completed Universit y of Vaccine Nasal 00:00:00 [facility] Influenza Virus 2011-06-14 Completed Universit y of Vaccine Nasal 00:00:00 [facility] Influenza Virus 2011-06-14 Completed Universit y of Vaccine Nasal 00:00:00 [facility] Influenza Virus 2011-06-14 Completed Universit y of Vaccine Nasal 00:00:00 [facility] Influenza Virus 2011-06-14 Completed Universit y of Vaccine Nasal 00:00:00 [facility] Influenza Virus 2011-06-14 Completed Universit y of Vaccine Nasal 00:00:00 [facility] Influenza Virus 2011-06-14 Completed Universit y of Vaccine Nasal 00:00:00 [facility] TDAP 2009-10-30 Completed University of 00:00:00 [facility] TDAP 2009-10-30 Completed University of 00:00:00 [facility] TDAP 2009-10-30 Completed University of 00:00:00 [facility] TDAP 2009-10-30 Completed University of 00:00:00 [facility] TDAP 2009-10-30 Completed University of 00:00:00 [facility] Branch TDAP 2009-10-30 Completed University of 00:00:00 [facility] Branch TDAP 2009-10-30 Completed University of 00:00:00 [facility] Branch TDAP 2009-10-30 Completed University of 00:00:00 [facility] Branch TDAP 2009-10-30 Completed University of 00:00:00 [facility] Branch TDAP 2009-10-30 Completed University of 00:00:00 [facility] Branch TDAP 2009-10-30 Completed University of 00:00:00 [facility] Branch TDAP 2009-10-30 Completed University of 00:00:00 [facility] Branch TDAP 2009-10-30 Completed University of 00:00:00 [facility] Branch TDAP 2009-10-30 Completed University of 00:00:00 [facility] Branch TDAP 2009-10-30 Completed University of 00:00:00 [facility] Branch TDAP 2009-10-30 Completed University of 00:00:00 [facility] Branch TDAP 2009-10-30 Completed University of 00:00:00 [facility] Branch TDAP 2009-10-30 Completed University of 00:00:00 [facility] Branch TDAP 2009-10-30 Completed University of 00:00:00 [facility] HPV 2008-06-18 Completed University of 00:00:00 [facility] Influenza Virus 2008-06-18 Completed Universit y of Vaccine 00:00:00 [facility] HPV 2008-06-18 Completed University of 00:00:00 [facility] Influenza Virus 2008-06-18 Completed Universit y of Vaccine 00:00:00 [facility] HPV 2008-06-18 Completed University of 00:00:00 [facility] Influenza Virus 2008-06-18 Completed Universit y of Vaccine 00:00:00 [facility] HPV 2008-06-18 Completed University of 00:00:00 [facility] Influenza Virus 2008-06-18 Completed Universit y of Vaccine 00:00:00 [facility] HPV 2008-06-18 Completed University of 00:00:00 [facility] Influenza Virus 2008-06-18 Completed Universit y of Vaccine 00:00:00 [facility] HPV 2008-06-18 Completed University of 00:00:00 [facility] [facility] Influenza Virus 2008-06-18 Completed [facility] Vaccine 00:00:00 [facility] HPV 2008-06-18 Completed [facility] 00:00:00 [facility] Influenza Virus 2008-06-18 Completed [facility] Vaccine 00:00:00 [facility] HPV 2008-06-18 Completed [facility] 00:00:00 [facility] Influenza Virus 2008-06-18 Completed [facility] Vaccine 00:00:00 [facility] HPV 2008-06-18 Completed [facility] 00:00:00 [facility] Influenza Virus 2008-06-18 Completed [facility] Vaccine 00:00:00 [facility] HPV 2008-06-18 Completed [facility] 00:00:00 [facility] Influenza Virus 2008-06-18 Completed [facility] Vaccine 00:00:00 [facility] HPV 2008-06-18 Completed [facility] 00:00:00 [facility] Influenza Virus 2008-06-18 Completed [facility] Vaccine 00:00:00 [facility] HPV 2008-06-18 Completed [facility] 00:00:00 [facility] Influenza Virus 2008-06-18 Completed [facility] Vaccine 00:00:00 [facility] HPV 2008-06-18 Completed [facility] 00:00:00 [facility] Influenza Virus 2008-06-18 Completed [facility] Vaccine 00:00:00 [facility] HPV 2008-06-18 Completed [facility] 00:00:00 [facility] Influenza Virus 2008-06-18 Completed [facility] Vaccine 00:00:00 [facility] HPV 2008-06-18 Completed [facility] 00:00:00 [facility] Influenza Virus 2008-06-18 Completed [facility] Vaccine 00:00:00 [facility] HPV 2008-06-18 Completed [facility] 00:00:00 [facility] Influenza Virus 2008-06-18 Completed [facility] Vaccine 00:00:00 [facility] HPV 2008-06-18 Completed [facility] 00:00:00 [facility] Influenza Virus 2008-06-18 Completed [facility] Vaccine 00:00:00 [facility] HPV 2008-06-18 Completed [facility] 00:00:00 [facility] Influenza Virus 2008-06-18 Completed [facility] Vaccine 00:00:00 [facility] HPV 2008-06-18 Completed [facility] 00:00:00 [facility] Influenza Virus 2008-06-18 Completed [facility] Vaccine 00:00:00 [facility] Influenza Virus 2007-06-14 Completed [facility] Vaccine - Whole 00:00:00 [facility] HPV 2007-06-14 Completed [facility] 00:00:00 [facility] Influenza Virus 2007-06-14 Completed [facility] Vaccine - Whole 00:00:00 [facility] HPV 2007-06-14 Completed [facility] 00:00:00 [facility] Influenza Virus 2007-06-14 Completed [facility] Vaccine - Whole 00:00:00 [facility] HPV 2007-06-14 Completed [facility] 00:00:00 [facility] Influenza Virus 2007-06-14 Completed [facility] Vaccine - Whole 00:00:00 [facility] HPV 2007-06-14 Completed [facility] 00:00:00 [facility] Influenza Virus 2007-06-14 Completed [facility] Vaccine - Whole 00:00:00 [facility] HPV 2007-06-14 Completed [facility] 00:00:00 [facility] Meningococcal 2007-04-14 Completed [facility] of Vaccine 00:00:00 [facility] HPV 2007-04-14 Completed [facility] 00:00:00 [facility] Meningococcal 2007-04-14 Completed [facility] Vaccine 00:00:00 [facility] HPV 2007-04-14 Completed [facility] 00:00:00 [facility] Meningococcal 2007-04-14 Completed [facility] Vaccine 00:00:00 [facility] HPV 2007-04-14 Completed [facility] 00:00:00 [facility] Meningococcal 2007-04-14 Completed [facility] Vaccine 00:00:00 [facility] HPV 2007-04-14 Completed [facility] 00:00:00 [facility] Meningococcal 2007-04-14 Completed [facility] Vaccine 00:00:00 [facility] HPV 2007-04-14 Completed [facility] 00:00:00 [facility] HEPATITIS A 2006-08-31 Completed [facility] 00:00:00 [facility] Varicella 2006-08-31 Completed [facility] of (varivax)(chicken 00:00:00 [place] [facility]ox[facility] [place] HEPATITIS A 2006-08-31 Completed [facility] 00:00:00 [facility] Varicella 2006-08-31 Completed [facility] (varivax)(chicken 00:00:00 [place] [facility] pox[facility] [place] HEPATITIS A 2006-08-31 Completed [facility] 00:00:00 [facility] Varicella 2006-08-31 Completed [facility] (varivax)(chicken 00:00:00 [place] [facility] HEPATITIS A 2006-08-31 Completed [facility] 00:00:00 [facility] Varicella 2006-08-31 Completed [facility] (varivax)(chicken 00:00:00 [place] [facility] HEPATITIS A 2006-08-31 Completed [facility] 00:00:00 [facility] Varicella 2006-08-31 Completed [facility] (varivax)(chicken 00:00:00 [place] [facility] p[facility] HEPATITIS A 2006-08-31 Completed [facility] 00:00:00 [facility] Varicella 2006-08-31 Completed [facility] (varivax)(chicken 00:00:00 [place] [facility] p[facility] HEPATITIS A 2006-08-31 Completed [facility] 00:00:00 [facility] Varicella 2006-08-31 Completed [facility] (varivax)(chicken 00:00:00 [place] [facility] pox[facility] HEPATITIS A 2006-08-31 Completed [facility] 00:00:00 [facility] Varicella 2006-08-31 Completed [facility] (varivax)(chicken 00:00:00 [place] [facility] pox[facility] HEPATITIS A 2006-08-31 Completed [facility] 00:00:00 [facility] Varicella 2006-08-31 Completed [facility] (varivax)(chicken 00:00:00 [place] [facility] pox[facility] HEPATITIS A 2006-08-31 Completed [facility] 00:00:00 [facility] Varicella 2006-08-31 Completed [facility] (varivax)(chicken 00:00:00 [place] [facility] pox[facility] HEPATITIS A 2006-08-31 Completed [facility] 00:00:00 [facility] Varicella 2006-08-31 Completed [facility] (varivax)(chicken 00:00:00 [place] [facility] pox[facility] HEPATITIS A 2006-08-31 Completed [facility] 00:00:00 [facility] Varicella 2006-08-31 Completed [facility] (varivax)(chicken 00:00:00 [place] [facility] pox[facility] HEPATITIS A 2006-08-31 Completed [facility] 00:00:00 [facility] Varicella 2006-08-31 Completed [facility] (varivax)(chicken 00:00:00 [place] [facility] pox[facility] HEPATITIS A 2006-08-31 Completed [facility] 00:00:00 [facility] Varicella 2006-08-31 Completed [facility] (varivax)(chicken 00:00:00 [place] [facility] pox[facility] HEPATITIS A 2006-08-31 Completed [facility] 00:00:00 [facility] Varicella 2006-08-31 Completed [facility] (varivax)(chicken 00:00:00 [place] [facility] pox[facility] HEPATITIS A 2006-08-31 Completed [facility] 00:00:00 [facility] Varicella 2006-08-31 Completed [facility] (varivax)(chicken 00:00:00 [place] [facility] pox[facility] HEPATITIS A 2006-08-31 Completed [facility] 00:00:00 [facility] Varicella 2006-08-31 Completed [facility] (varivax)(chicken 00:00:00 [place] [facility] pox[facility] HEPATITIS A 2006-08-31 Completed [facility] 00:00:00 [facility] Varicella 2006-08-31 Completed [facility] (varivax)(chicken 00:00:00 [place] [facility] pox[facility] HEPATITIS A 2006-08-31 Completed [facility] 00:00:00 [facility] Varicella 2006-08-31 Completed [facility] (varivax)(chicken 00:00:00 [place] [facility] pox[facility] Varicella 2006-02-16 Completed [facility] (varivax)(chicken 00:00:00 [place] [facility] pox[facility] HEPATITIS A 2006-02-16 Completed [facility] 00:00:00 [facility] Varicella 2006-02-16 Completed [facility] (varivax)(chicken 00:00:00 [place] [facility] pox[facility] HEPATITIS A 2006-02-16 Completed [facility] 00:00:00 [facility] Varicella 2006-02-16 Completed [facility] (varivax)(chicken 00:00:00 [place] [facility] pox[facility] HEPATITIS A 2006-02-16 Completed [facility] 00:00:00 [facility] Varicella 2006-02-16 Completed [facility] (varivax)(chicken 00:00:00 [place] [facility] pox[facility] HEPATITIS A 2006-02-16 Completed [facility] 00:00:00 [facility] Varicella 2006-02-16 Completed [facility] (varivax)(chicken 00:00:00 [place] [facility] pox[facility] HEPATITIS A 2006-02-16 Completed [facility] 00:00:00 [facility] Td 2003-11-20 Completed [facility] 00:00:00 [facility] Td 2003-11-20 Completed [facility] 00:00:00 [facility] Td 2003-11-20 Completed [facility] 00:00:00 [facility] Td 2003-11-20 Completed [facility] 00:00:00 [facility] Td 2003-11-20 Completed [facility] 00:00:00 [facility] Td 2003-11-20 Completed [facility] 00:00:00 [facility] Td 2003-11-20 Completed [facility] 00:00:00 [facility] Td 2003-11-20 Completed [facility] 00:00:00 [facility] Td 2003-11-20 Completed [facility] 00:00:00 [facility] Td 2003-11-20 Completed [facility] 00:00:00 [facility] Td 2003-11-20 Completed [facility] 00:00:00 [facility] Td 2003-11-20 Completed [facility] 00:00:00 [facility] Td 2003-11-20 Completed [facility] 00:00:00 [facility] Td 2003-11-20 Completed [facility] 00:00:00 [facility] Td 2003-11-20 Completed [facility] 00:00:00 [facility] Td 2003-11-20 Completed [facility] 00:00:00 [facility] Td 2003-11-20 Completed [facility] 00:00:00 [facility] Td 2003-11-20 Completed [facility] 00:00:00 [facility] Td 2003-11-20 Completed [facility] 00:00:00 [facility] Hep B, Adol or Pedi 2003-09-30 Completed Unive rsity of Dosage 00:00:00 [facility] Hep B, Adol or Pedi 2003-09-30 Completed Unive rsity of Dosage 00:00:00 [facility] Hep B, Adol or Pedi 2003-09-30 Completed Unive rsity of Dosage 00:00:00 [facility] Hep B, Adol or Pedi 2003-09-30 Completed Unive rsity of Dosage 00:00:00 [facility] Hep B, Adol or Pedi 2003-09-30 Completed Unive rsity of Dosage 00:00:00 [facility] Hep B, Adol or Pedi 2003-09-30 Completed Unive rsity of Dosage 00:00:00 [facility] Hep B, Adol or Pedi 2003-09-30 Completed Unive rsity of Dosage 00:00:00 [facility] Hep B, Adol or Pedi 2003-09-30 Completed Unive rsity of Dosage 00:00:00 [facility] Hep B, Adol or Pedi 2003-09-30 Completed Unive rsity of Dosage 00:00:00 [facility] Hep B, Adol or Pedi 2003-09-30 Completed Unive rsity of Dosage 00:00:00 [facility] Hep B, Adol or Pedi 2003-09-30 Completed Unive rsity of Dosage 00:00:00 [facility] Hep B, Adol or Pedi 2003-09-30 Completed Unive rsity of Dosage 00:00:00 [facility] Hep B, Adol or Pedi 2003-09-30 Completed Unive rsity of Dosage 00:00:00 [facility] Hep B, Adol or Pedi 2003-09-30 Completed Unive rsity of Dosage 00:00:00 [facility] Hep B, Adol or Pedi 2003-09-30 Completed Unive rsity of Dosage 00:00:00 [facility] Hep B, Adol or Pedi 2003-09-30 Completed Unive rsity of Dosage 00:00:00 [facility] Hep B, Adol or Pedi 2003-09-30 Completed Unive rsity of Dosage 00:00:00 [facility] Hep B, Adol or Pedi 2003-09-30 Completed Unive rsity of Dosage 00:00:00 [facility] Hep B, Adol or Pedi 2003-09-30 Completed Unive rsity of Dosage 00:00:00 [facility] Polio (IPV/OPV) 2003-08-05 Completed [facility] 00:00:00 [facility] Polio (IPV/OPV) 2003-08-05 Completed [facility] 00:00:00 [facility] Polio (IPV/OPV) 2003-08-05 Completed [facility] 00:00:00 [facility] Polio (IPV/OPV) 2003-08-05 Completed [facility] 00:00:00 [facility] Polio (IPV/OPV) 2003-08-05 Completed [facility] 00:00:00 [facility] Polio (IPV/OPV) 2003-08-05 Completed [facility] 00:00:00 [facility] Polio (IPV/OPV) 2003-08-05 Completed [facility] 00:00:00 [facility] Polio (IPV/OPV) 2003-08-05 Completed [facility] 00:00:00 [facility] Polio (IPV/OPV) 2003-08-05 Completed [facility] 00:00:00 [facility] Polio (IPV/OPV) 2003-08-05 Completed [facility] 00:00:00 [facility] Polio (IPV/OPV) 2003-08-05 Completed [facility] 00:00:00 [facility] Polio (IPV/OPV) 2003-08-05 Completed [facility] 00:00:00 [facility] Polio (IPV/OPV) 2003-08-05 Completed [facility] 00:00:00 [facility] Polio (IPV/OPV) 2003-08-05 Completed [facility] 00:00:00 [facility] Polio (IPV/OPV) 2003-08-05 Completed [facility] 00:00:00 [facility] Polio (IPV/OPV) 2003-08-05 Completed [facility] 00:00:00 [facility] Polio (IPV/OPV) 2003-08-05 Completed [facility] 00:00:00 [facility] Polio (IPV/OPV) 2003-08-05 Completed [facility] 00:00:00 [facility] Polio (IPV/OPV) 2003-08-05 Completed [facility] 00:00:00 [facility] Hep B, Adol or Pedi 2003-05-13 Completed Unive rsity of Dosage 00:00:00 [facility] MMR 2003-05-13 Completed [facility] 00:00:00 [facility] Polio (IPV/OPV) 2003-05-13 Completed [facility] 00:00:00 [facility] Td 2003-05-13 Completed [facility] 00:00:00 [facility] Hep B, Adol or Pedi 2003-05-13 Completed Unive rsity of Dosage 00:00:00 [facility] MMR 2003-05-13 Completed [facility] 00:00:00 [facility] Polio (IPV/OPV) 2003-05-13 Completed [facility] 00:00:00 [facility] Td 2003-05-13 Completed [facility] 00:00:00 [facility] Hep B, Adol or Pedi 2003-05-13 Completed Unive rsity of Dosage 00:00:00 [facility] MMR 2003-05-13 Completed [facility] 00:00:00 [facility] Polio (IPV/OPV) 2003-05-13 Completed [facility] 00:00:00 [facility] Td 2003-05-13 Completed [facility] 00:00:00 [facility] Hep B, Adol or Pedi 2003-05-13 Completed Unive rsity of Dosage 00:00:00 [facility] MMR 2003-05-13 Completed [facility] 00:00:00 [facility] Polio (IPV/OPV) 2003-05-13 Completed [facility] 00:00:00 [facility] Td 2003-05-13 Completed [facility] 00:00:00 [facility] Hep B, Adol or Pedi 2003-05-13 Completed Unive rsity of Dosage 00:00:00 [facility] MMR 2003-05-13 Completed [facility] 00:00:00 [facility] Polio (IPV/OPV) 2003-05-13 Completed [facility] 00:00:00 [facility] Td 2003-05-13 Completed [facility] 00:00:00 [facility] Hep B, Adol or Pedi 2003-05-13 Completed Unive rsity of Dosage 00:00:00 [facility] MMR 2003-05-13 Completed [facility] 00:00:00 [facility] Polio (IPV/OPV) 2003-05-13 Completed [facility] 00:00:00 [facility] Td 2003-05-13 Completed [facility] 00:00:00 [facility] Hep B, Adol or Pedi 2003-05-13 Completed Unive rsity of Dosage 00:00:00 [facility] MMR 2003-05-13 Completed [facility] 00:00:00 [facility] Polio (IPV/OPV) 2003-05-13 Completed [facility] 00:00:00 [facility] Td 2003-05-13 Completed [facility] 00:00:00 [facility] Hep B, Adol or Pedi 2003-05-13 Completed Unive rsity of Dosage 00:00:00 [facility] MMR 2003-05-13 Completed [facility] 00:00:00 [facility] Polio (IPV/OPV) 2003-05-13 Completed [facility] 00:00:00 [facility] Td 2003-05-13 Completed [facility] 00:00:00 [facility] Hep B, Adol or Pedi 2003-05-13 Completed Unive rsity of Dosage 00:00:00 [facility] MMR 2003-05-13 Completed [facility] 00:00:00 [facility] Polio (IPV/OPV) 2003-05-13 Completed [facility] 00:00:00 [facility] Td 2003-05-13 Completed [facility] 00:00:00 [facility] Hep B, Adol or Pedi 2003-05-13 Completed Unive rsity of Dosage 00:00:00 [facility] MMR 2003-05-13 Completed [facility] 00:00:00 [facility] Polio (IPV/OPV) 2003-05-13 Completed [facility] 00:00:00 [facility] Td 2003-05-13 Completed [facility] 00:00:00 [facility] Hep B, Adol or Pedi 2003-05-13 Completed Unive rsity of Dosage 00:00:00 [facility] MMR 2003-05-13 Completed [facility] 00:00:00 [facility] Polio (IPV/OPV) 2003-05-13 Completed [facility] 00:00:00 [facility] Td 2003-05-13 Completed [facility] 00:00:00 [facility] Hep B, Adol or Pedi 2003-05-13 Completed Unive rsity of Dosage 00:00:00 [facility] MMR 2003-05-13 Completed [facility] 00:00:00 [facility] Polio (IPV/OPV) 2003-05-13 Completed [facility] 00:00:00 [facility] Td 2003-05-13 Completed [facility] 00:00:00 [facility] Hep B, Adol or Pedi 2003-05-13 Completed Unive rsity of Dosage 00:00:00 [facility] MMR 2003-05-13 Completed [facility] 00:00:00 [facility] Polio (IPV/OPV) 2003-05-13 Completed [facility] 00:00:00 [facility] Td 2003-05-13 Completed [facility] 00:00:00 [facility] Hep B, Adol or Pedi 2003-05-13 Completed Unive rsity of Dosage 00:00:00 [facility] MMR 2003-05-13 Completed [facility] 00:00:00 [facility] Polio (IPV/OPV) 2003-05-13 Completed [facility] 00:00:00 [facility] Td 2003-05-13 Completed [facility] 00:00:00 [facility] Hep B, Adol or Pedi 2003-05-13 Completed Unive rsity of Dosage 00:00:00 [facility] MMR 2003-05-13 Completed [facility] 00:00:00 [facility] Polio (IPV/OPV) 2003-05-13 Completed [facility] 00:00:00 [facility] Td 2003-05-13 Completed [facility] 00:00:00 [facility] Hep B, Adol or Pedi 2003-05-13 Completed Unive rsity of Dosage 00:00:00 [facility] MMR 2003-05-13 Completed [facility] 00:00:00 [facility] Polio (IPV/OPV) 2003-05-13 Completed [facility] 00:00:00 [facility] Td 2003-05-13 Completed [facility] 00:00:00 [facility] Hep B, Adol or Pedi 2003-05-13 Completed Unive rsity of Dosage 00:00:00 [facility] MMR 2003-05-13 Completed [facility] 00:00:00 [facility] Polio (IPV/OPV) 2003-05-13 Completed [facility] 00:00:00 [facility] Td 2003-05-13 Completed [facility] 00:00:00 [facility] Hep B, Adol or Pedi 2003-05-13 Completed [facility]ive rsity of Dosage 00:00:00 [facility] MMR 2003-05-13 Completed [facility] 00:00:00 [facility] Polio (IPV/OPV) 2003-05-13 Completed [facility] 00:00:00 [facility] Td 2003-05-13 Completed [facility] 00:00:00 [facility] Hep B, Adol or Pedi 2003-05-13 Completed [facility]ive rsity of Dosage 00:00:00 [facility] MMR 2003-05-13 Completed [facility] 00:00:00 [facility] Polio (IPV/OPV) 2003-05-13 Completed [facility] 00:00:00 [facility] Td 2003-05-13 Completed [facility] 00:00:00 [facility] Hep B, Adol or Pedi 2003-03-11 Completed [facility] rs[facility] of Dosage 00:00:00 [facility] MMR 2003-03-11 Completed [facility] 00:00:00 [facility] Polio (IPV/OPV) 2003-03-11 Completed [facility] 00:00:00 [facility] Td 2003-03-11 Completed [facility] 00:00:00 [facility] Hep B, Adol or Pedi 2003-03-11 Completed [facility]ive rs[facility] of Dosage 00:00:00 [facility] MMR 2003-03-11 Completed [facility] 00:00:00 [facility] Polio (IPV/OPV) 2003-03-11 Completed [facility] 00:00:00 [facility] Td 2003-03-11 Completed [facility] 00:00:00 [facility] Hep B, Adol or Pedi 2003-03-11 Completed [facility] of Dosage 00:00:00 [facility] MMR 2003-03-11 Completed [facility] 00:00:00 [facility] Polio (IPV/OPV) 2003-03-11 Completed [facility] 00:00:00 [facility] Td 2003-03-11 Completed [facility] 00:00:00 [facility] Hep B, Adol or Pedi 2003-03-11 Completed [facility]ive rs[facility] of Dosage 00:00:00 [facility] MMR 2003-03-11 Completed [facility] 00:00:00 [facility] Polio (IPV/OPV) 2003-03-11 Completed [facility] 00:00:00 [facility] Td 2003-03-11 Completed [facility] 00:00:00 [facility] Hep B, Adol or Pedi 2003-03-11 Completed [facility] of Dosage 00:00:00 [facility] MMR 2003-03-11 Completed [facility] 00:00:00 [facility] Polio (IPV/OPV) 2003-03-11 Completed [facility] 00:00:00 [facility] Td 2003-03-11 Completed University of 00:00:00 [facility] Hep B, Adol or Pedi 2003-03-11 Completed Unive rsity of Dosage 00:00:00 [facility] MMR 2003-03-11 Completed University of 00:00:00 [facility] Polio (IPV/OPV) 2003-03-11 Completed Universit y of 00:00:00 [facility] Td 2003-03-11 Completed University of 00:00:00 [facility] Hep B, Adol or Pedi 2003-03-11 Completed Unive rsity of Dosage 00:00:00 [facility] MMR 2003-03-11 Completed University of 00:00:00 [facility] Polio (IPV/OPV) 2003-03-11 Completed Universit y of 00:00:00 [facility] Td 2003-03-11 Completed University of 00:00:00 [facility] Hep B, Adol or Pedi 2003-03-11 Completed Unive rsity of Dosage 00:00:00 [facility] MMR 2003-03-11 Completed University of 00:00:00 [facility] Polio (IPV/OPV) 2003-03-11 Completed Universit y of 00:00:00 [facility] Td 2003-03-11 Completed University of 00:00:00 [facility] Hep B, Adol or Pedi 2003-03-11 Completed Unive rsity of Dosage 00:00:00 [facility] MMR 2003-03-11 Completed University of 00:00:00 [facility] Polio (IPV/OPV) 2003-03-11 Completed Universit y of 00:00:00 [facility] Td 2003-03-11 Completed University of 00:00:00 [facility] Hep B, Adol or Pedi 2003-03-11 Completed Unive rsity of Dosage 00:00:00 [facility] MMR 2003-03-11 Completed University of 00:00:00 [facility] Polio (IPV/OPV) 2003-03-11 Completed Universit y of 00:00:00 [facility] Td 2003-03-11 Completed University of 00:00:00 [facility] Hep B, Adol or Pedi 2003-03-11 Completed Unive rsity of Dosage 00:00:00 [facility] MMR 2003-03-11 Completed University of 00:00:00 [facility] Polio (IPV/OPV) 2003-03-11 Completed Universit y of 00:00:00 [facility] Td 2003-03-11 Completed University of 00:00:00 [facility] Hep B, Adol or Pedi 2003-03-11 Completed Unive rsity of Dosage 00:00:00 [facility] MMR 2003-03-11 Completed University of 00:00:00 [facility] Polio (IPV/OPV) 2003-03-11 Completed Universit y of 00:00:00 [facility] Td 2003-03-11 Completed University of 00:00:00 [facility] Hep B, Adol or Pedi 2003-03-11 Completed Unive rsity of Dosage 00:00:00 [facility] MMR 2003-03-11 Completed University of 00:00:00 [facility] Polio (IPV/OPV) 2003-03-11 Completed Universit y of 00:00:00 [facility] Td 2003-03-11 Completed University of 00:00:00 [facility] Hep B, Adol or Pedi 2003-03-11 Completed Unive rsity of Dosage 00:00:00 [facility] MMR 2003-03-11 Completed University of 00:00:00 [facility] Polio (IPV/OPV) 2003-03-11 Completed Universit y of 00:00:00 [facility] Td 2003-03-11 Completed University of 00:00:00 [facility] Hep B, Adol or Pedi 2003-03-11 Completed Unive rsity of Dosage 00:00:00 [facility] MMR 2003-03-11 Completed University of 00:00:00 [facility] Polio (IPV/OPV) 2003-03-11 Completed Universit y of 00:00:00 [facility] Td 2003-03-11 Completed University of 00:00:00 [facility] Hep B, Adol or Pedi 2003-03-11 Completed Unive rsity of Dosage 00:00:00 [facility] MMR 2003-03-11 Completed University of 00:00:00 [facility] Polio (IPV/OPV) 2003-03-11 Completed Universit y of 00:00:00 [facility] Td 2003-03-11 Completed University of 00:00:00 [facility] Hep B, Adol or Pedi 2003-03-11 Completed Unive rsity of Dosage 00:00:00 [facility] MMR 2003-03-11 Completed University of 00:00:00 [facility] Polio (IPV/OPV) 2003-03-11 Completed Universit y of 00:00:00 [facility] Td 2003-03-11 Completed University of 00:00:00 [facility] Hep B, Adol or Pedi 2003-03-11 Completed Unive rsity of Dosage 00:00:00 [facility] MMR 2003-03-11 Completed University of 00:00:00 [facility] Polio (IPV/OPV) 2003-03-11 Completed Universit y of 00:00:00 [facility] Td 2003-03-11 Completed University of 00:00:00 [facility] Hep B, Adol or Pedi 2003-03-11 Completed Unive rsity of Dosage 00:00:00 [facility] MMR 2003-03-11 Completed University of 00:00:00 [facility] Polio (IPV/OPV) 2003-03-11 Completed Universit y of 00:00:00 [facility] Td 2003-03-11 Completed University of 00:00:00 [facility] Vital Signs Vital Name Observation Time Observation Value Comments Source Systolic blood 2022-06-07 14:12:00 108 mm[Hg] Univer sity of pressure [facility] Diastolic blood 2022-06-07 14:12:00 74 mm[Hg] Unive rsity of pressure [facility] Heart rate 2022-06-07 14:12:00 93 /min Univers[facility] Body temperature 2022-06-07 14:12:00 36.33 Letty Univ ersity of [facility] Respiratory rate 2022-06-07 14:12:00 18 /min Univ ersity of [facility] Body weight 2022-06-07 14:12:00 73.12 kg [facility] BMI 2022-06-07 14:12:00 29.48 kg[facility]m2 [facility] Systolic blood 2022-05-28 18:21:00 111 mm[Hg] Univer sity of pressure [facility] Diastolic blood 2022-05-28 18:21:00 73 mm[Hg] Unive rsity of pressure [facility] Heart rate 2022-05-28 18:21:00 98 /min Universi [facility] Body temperature 2022-05-28 18:21:00 37.06 Letty Univ ersity of [facility] Respiratory rate 2022-05-28 18:21:00 18 /min Univ ersity of [facility] Body height 2022-05-28 18:21:00 157.5 cm [facility] Body weight 2022-05-28 18:21:00 73.029 kg Universi ty of [place] [facility] BMI 2022-05-28 18:21:00 29.45 kg/m2 Universi ty of [facility] Systolic blood 2022-04-30 17:56:00 116 mm[Hg] Univer sity of pressure [facility] Diastolic blood 2022-04-30 17:56:00 72 mm[Hg] Unive rsity of pressure [facility] Heart rate 2022-04-30 17:56:00 106 /min Universi ty of [facility] Body temperature 2022-04-30 17:56:00 36.89 Letty Univ ersity of [facility] Respiratory rate 2022-04-30 17:56:00 18 /min Univ ersity of [facility] Body height 2022-04-30 17:56:00 157.5 cm Universi ty of [facility] Body weight 2022-04-30 17:56:00 70.262 kg Universi ty of [facility] BMI 2022-04-30 17:56:00 28.33 kg/m2 Universi ty [facility] Systolic blood 2022-04-17 18:00:00 107 mm[Hg] Univer sity of pressure [facility] Diastolic blood 2022-04-17 18:00:00 64 mm[Hg] Unive rsity of pressure [facility] Heart rate 2022-04-17 18:00:00 80 /min [facility] [place] [facility] [place] Body temperature 2022-04-17 18:00:00 36.89 Letty Univ ersity of [facility] Respiratory rate 2022-04-17 18:00:00 18 /min Univ ersity of [facility] Body weight 2022-04-17 17:41:00 71.305 kg [facility] BMI 2022-04-17 17:41:00 29.70 kg/m2 Universi ty of [facility] Oxygen saturation in 2022-04-17 17:41:00 98 /min [facility] Arterial blood by [facility] Pulse oximetry Branch Procedures Procedure Date / Time Performed Performing Clinician Nati e TDAP VACCINE, >11 YRS, 2022-06-07 14:39:48 Neha Méndez [facility] POCT URINALYSIS 2022-06-07 14:14:00 Neha Méndez [facility] POCT URINALYSIS 2022-04-30 17:58:00 Neha Méndez [facility] CONSENT/REFUSAL FOR 2022-04-17 17:37:29 Doctor Unassigned, No Un [facility] DIAGNOSIS AND Name [facility] TREATMENT SECOND AND THIRD 2022-04-02 21:10:[address] [facility] SECOND AND THIRD 2022-04-02 21:05:00 Neha Méndez [facility] TRIMESTER ULTRASOUND Medical [facility] Encounters Start End Encounter Admission Attending Care Care Encounter Source Date/Time Date/Time Type Type Clinicians Facility Department ID 2022-04-17 Outpatient X [facility] ORI [id number] Univers 14:52:49 ity [facility] 2021-05-25 Emergency [facility] [id number] Univers 02:55:16 ity [facility] 2021-05-25 Emergency [facility] [id number] Univers 01:03:42 ity [facility] 2021-05-21 Emergency [facility] [id number] Univers [facility]:32[facility] 2022-06-22 Outpatient R DEV, [facility] [id number] Univers 15:30:00 15:30:00 NEHA novak o f [facility] 2022-06-07 2022-06-07 Outpatient R DEV [facility] [id number] Univers 08:00:00 09:01:29 NEHA novak o f [facility] 2022-06-07 2022-06-07 Routine [facility] [id number] Univers 08:00:00 09:01:29 Neha Villafuerte RESEARCH ANIMAL FACILITY SUPERVISOR 350.1.13.10 ity of Visit REGIONAL 4.2.7.2.686 Apolinar as MATERNAL [id number] [facility] ical & CHILD [address] [place] [address] 2022-06-07 2022-06-07 Telephone Dev [facility] 1.2.840.114 [id number] Univers 00:00:00 00:00:00 Neha C RESEARCH ANIMAL FACILITY SUPERVISOR 350.1.13.10 ity of REGIONAL 4.2.7.2.686 [place]olin[place] as MATERNAL [id number] [facility] ical & CHILD [address] [place] [address] 2022-06-01 2022-06-01 Fixer Supervisor Lab, [facility] 1.2.840. [id number] Univers 07:45:00 08:15:30 Visit Dev Neha C RESEARCH ANIMAL FACILITY SUPERVISOR 350.1.13. 10 ity of REGIONAL 4.2.7.2.686 [place]olin[place] as MATERNAL [id number] [facility] & CHILD [address] [place] [address] 2022-06-01 2022-06-01 [facility] [id number] Univers 07:45:00 07:45:00 NEHA ity o [facility] 2022-05-31 2022-05-31 Telephone [facility] 1.2.840.114 [id number] Univers 00:00:00 00:00:00 Neha C RESEARCH ANIMAL FACILITY SUPERVISOR 350.1.13.10 ity of REGIONAL 4.2.7.2.686 [place] as MATERNAL [id number] [facility] & [address] 2022-05-28 2022-05-28 [facility] [id number] Univers 13:00:00 13:37:57 NEHA ity o [facility] 2022-05-28 2022-05-28 Routine [facility] 1.2.022.088 [id number] Univers 13:00:00 13:37:57 Neha C RESEARCH ANIMAL FACILITY SUPERVISOR 350.1.13.10 ity of Visit REGIONAL 4.2.7.2.686 Apolinar as MATERNAL [id number] [facility] & [address] 2022-05-20 2022-05-20 Abstract [facility] 1.2.840.114 [id number] Univers 00:00:00 00:00:00 Neha C RESEARCH ANIMAL FACILITY SUPERVISOR 350.1.13.10 ity of REGIONAL 4.2.7.2.686 [place] as MATERNAL [id number] [facility] ical & CHILD [address] [place] [address] 2022-05-18 2022-05-18 Fixer Supervisor 1, [facility] Room UNIVERSIT 1 .2.840.114 [id number] Univers 11:30:00 12:00:00 Visit [facility] 350.1 .13.10 ity of CL[place] [id number] [address] 2022-05-18 2022-05-18 Outpatient P MURIEL [facility] [id number] Univers 11:30:00 11:30:00 CHASEY ity [facility] 2022-05-18 2022-05-18 Outpatient P [facility] [id number] Univers 11:30:00 11:30:00 ity [facility] 2022-05-07 2022-05-07 Telephone [facility] 1.2.840.114 [id number] Univers 00:00:00 00:00:00 Neha C RESEARCH ANIMAL FACILITY SUPERVISOR 350.1.13.10 ity of REGIONAL 4.2.7.2.686 [place]olin[place] as MATERNAL [id number] [facility] & CHILD [address] [place] [address] 2022-04-30 2022-04-30 [facility] [id number] Univers 12:45:00 13:34:43 NEHA novak o f [facility] 2022-04-30 2022-04-30 Routine [facility] [id number] Univers 12:45:00 13:34:43 Neha C RESEARCH ANIMAL FACILITY SUPERVISOR 350.1.13.10 ity of Visit REGIONAL 4.2.7.2.686 Apolinar as MATERNAL [id number] [facility] & CHILD [address] [place] [address] 2022-04-30 2022-04-30 Outpatient R [facility] [id number] Univers 12:45:00 12:45:00 NEHA pagany o f [facility] 2022-04-17 2022-04-17 Outpatient X FISH, STEPHANIE [facility] ORI [id number] Univers 12:50:00 13:45:00 ity of [facility] 2022-04-17 2022-04-17 Emergency Yanira Brown [facility] 1.2.8 40.114 [id number] Univers 12:50:00 13:45:00 Stephanie Bradley 350.1.13.10 ity [facility] 4.2.7.2.686 [facility] [id number] [facility] [address] 2022-04-12 2022-04-12 Telephone Dev [facility] 1.2.840.114 [id number] Univers 00:00:00 00:00:00 Neha Villafuerte RESEARCH ANIMAL FACILITY SUPERVISOR 350.1.13.10 ity [facility] 4.2.7.2.686 Apolinar as MATERNAL [id number] [facility] ical & CHILD [address] [place] [address] 2022-04-02 2022-04-02 Outpatient P CHERYL JJ [facility] [id number] Univers 14:45:00 16:31:00 CHERYL JJ [facility] 2022-04-02 2022-04-02 Fixer Supervisor 1, [facility] Room UNIVERSIT 1 .2.840.114 [id number] Univers 14:45:00 16:31:00 Visit Adrián Willson [facility] 350.1.13.10 ity Cheryl Jj [facility] 4.2.7.2.686 [place] [id number] [facility] [address] 2022-04-02 2022-04-02 TelemedicShelly Helm [facility] 1.2.8 40.114 [id number] Univers 10:30:00 11:15:19 ne Visit Adrián Willson RESEARCH ANIMAL FACILITY SUPERVISOR 350.1.13.10 ity [facility] 4.2.7.2.686 Apolinar as MATERNAL [id number] [facility] & CHILD [address] [place] [address] 2022-04-02 2022-04-02 Outpatient R ADRIÁN WILLSON [facility] [id number] Univers 10:30:00 11:15:19 ity [facility] 2022-04-02 2022-04-02 Outpatient R DEV [facility] [id number] Univers 09:45:00 10:04:07 NEHA ity o f [facility] 2022-04-02 2022-04-02 Routine Akinsipe, [facility] 1.2.200.864 [id number] Univers 09:45:00 10:04:07 Neha C RESEARCH ANIMAL FACILITY SUPERVISOR 350.1.13.10 ity of Visit REGIONAL 4.2.7.2.686 Apolinar as MATERNAL [id number] [facility] [address] [place] [address] 2022-04-02 2022-04-02 Abstract [facility], [facility] 1.2.840.114 [id number] Univers 00:00:00 00:00:00 Neha C RESEARCH ANIMAL FACILITY SUPERVISOR 350.1.13.10 ity of REGIONAL 4.2.7.2.686 Apolinar as MATERNAL [id number] [facility] & [address] 2022-03-24 2022-03-24 Outpatient P [facility] [id number] Univers 09:30:00 09:30:00 ity of [facility] 2022-03-24 2022-03-24 Outpatient P [facility] [id number] Univers 09:15:00 09:15:00 ity of [facility] 2022-03-11 2022-03-11 Telephone [facility] 1.2.840.114 [id number] Univers 00:00:00 00:00:00 Neha C RESEARCH ANIMAL FACILITY SUPERVISOR 350.1.13.10 ity of REGIONAL 4.2.7.2.686 Apolinar as MATERNAL [id number] [facility] & [address] 2022-03-08 2022-03-08 Outpatient R AKINSIPE, [facility] [id number] Univers 12:45:00 12:45:00 NEHA ity o f [facility] 2022-03-08 2022-03-08 Outpatient R AKINSIPE, [facility] [id number] Univers 12:45:00 12:45:00 NEHA ity o f [facility] 2022-03-05 2022-03-05 Routine Akinpe, [facility] 1.2.671.301 [id number] Univers 14:30:00 15:17:18 Neha C RESEARCH ANIMAL FACILITY SUPERVISOR 350.1.13.10 ity of Visit REGIONAL 4.2.7.2.686 Apolinar as MATERNAL [id number] [facility] ical & CHILD [address] [place] [address] 2022-03-05 2022-03-05 Outpatient R DAYDAYAGUSTINA [facility] [id number] Univers 14:30:00 15:17:18 NEHA ity o f [facility] 2022-03-05 2022-03-05 [facility] [id number] Univers 14:30:00 14:30:00 NEHA ity o f [facility] 2022-03-05 2022-03-05 Telephone [facility] 1.2.840.114 [id number] Univers 00:00:00 00:00:00 Neha C RESEARCH ANIMAL FACILITY SUPERVISOR 350.1.13.10 ity of REGIONAL 4.2.7.2.686 [place] as MATERNAL [id number] [facility] ical & CHILD [address] [place] [address] 2022-02-26 2022-02-26 Telephone [facility] 1.2.840.114 [id number] Univers 00:00:00 00:00:00 Neha C RESEARCH ANIMAL FACILITY SUPERVISOR 350.1.13.10 ity of REGIONAL 4.2.7.2.686 [place] as MATERNAL [id number] [facility] [address] [place] [address] 2022-02-25 2022-02-25 Telephone [facility] 1.2.840.114 [id number] Univers 00:00:00 00:00:00 Neha C RESEARCH ANIMAL FACILITY SUPERVISOR 350.1.13.10 ity of REGIONAL 4.2.7.2.686 Apolinar as MATERNAL [id number] [facility] [address] [place] [address] 2022-02-19 2022-02-19 Abstract [facility] 1.2.840.114 [id number] Univers 00:00:00 00:00:00 Neha C RESEARCH ANIMAL FACILITY SUPERVISOR 350.1.13.10 ity of REGIONAL 4.2.7.2.686 [place] as MATERNAL [id number] [facility] [address] [place] [address] 2022-02-17 2022-02-17 Outpatient P [facility] [id number] Univers 08:00:00 08:00:00 ity of [facility] 2022-02-17 2022-02-17 Telephone [facility] 1.2.840.114 [id number] Univers 00:00:00 00:00:00 Neha Villafuerte RESEARCH ANIMAL FACILITY SUPERVISOR 350.1.13.10 ity of REGIONAL 4.2.7.2.686 [place]olin[place] as MATERNAL [id number] Med ical & CHILD [address] [facility] 2022-02-16 2022-02-16 Fixer Supervisor Lab, [facility] UNIVERSIT 1.2.84 0.114 [id number] Univers 12:15:00 12:30:00 Visit MihirCheryl [facility] 350.1.13.10 ity of CLINICS [place] [id number] [address] 2022-02-16 2022-02-16 Outpatient R CHERYL JJ [facility] [id number] Univers 12:15:00 12:15:00 CHERYL JJ [facility] 2022-02-16 2022-02-16 Fixer Supervisor 2, [facility] UNIVERSIT 1 .2.840.114 [id number] Univers 11:15:00 12:12:33 Visit Cheryl Jj Amandeep [facility] 350.1.13.10 ity of CLINICS 4[place] [id number] [facility] [address] 2022-02-16 2022-02-16 Gagan Rene UNIVERSIT 1.2.850.962 [id number] Univers 00:00:00 00:00:00 Management [facility] 350.1.13.10 ity of CLINICS [place] [id number] [address] 2022-02-08 2022-02-08 [facility] [id number] Univers 13:15:00 14:25:52 NEHA fan f [facility] 2022-02-08 2022-02-08 Routine [facility] 1.2.205.508 [id number] Univers 13:15:00 14:25:52 Neha C RESEARCH ANIMAL FACILITY SUPERVISOR 350.1.13.10 ity of Visit [facility] 4.2.7.2.686 Apolinar as MATERNAL [id number] [facility] ical & CHILD [address] [place] [address] 2022-02-03 2022-02-03 Fixer Supervisor [facility] Room [facility] 1.2. 840.114 [id number] Univers 11:15:00 11:40:11 Visit Sorin SepulvedaramezSandrine RESEARCH ANIMAL FACILITY SUPERVISOR 350.1. 13.10 ity of REGIONAL 4.2.7.2.686 [place]olin[place] as MATERNAL [id number] Med ical & CHILD 369 [facility] 2022-02-03 2022-02-03 Outpatient P SORIN [facility] [id number] Univers 11:15:00 11:15:00 ILIA it y of SSANDRINE [facility] 2022-02-03 2022-02-03 Abstract Dev, [facility] 1.2.840.114 [id number] Univers 00:00:00 00:00:00 Neha C RESEARCH ANIMAL FACILITY SUPERVISOR 350.1.13.10 ity of [facility] 4.2.7.2.686 Apolinar as MATERNAL [id number] [facility] ical & CHILD [address] [place] [address] 2022-01-19 2022-01-19 Emergency [facility] E[facility] [id number] Univers 00:26:00 01:45:00 IRASEMA [facility] 2022-01-19 2022-01-19 Emergency [facility] 1.2.656.105 [id number] Univers 00:26:00 01:45:00 [facility] 350.1.13.10 i ty [facility] [place].7.2.[place] [id number] [address] 2022-01-19 2022-01-19 Emergency X [facility] ERT [id number] Univers 00:26:00 01:45:00 IRASEMA [facility] 2022-01-19 2022-01-19 Emergency [facility] ERT [id number] Univers 00:26:00 01:45:00 IRASEMA ity of [facility] 2022-01-15 2022-01-15 Telephone [facility] 1.2.840.114 [id number] Univers 00:00:00 00:00:00 Neha C RESEARCH ANIMAL FACILITY SUPERVISOR 350.1.13.10 ity of REGIONAL 4.2.7.2.686 Apolinar as MATERNAL [id number] [facility] & CHILD [address] [place] [address] 2022-01-12 2022-01-12 Outpatient R AKINSIPE, [facility] [id number] Univers 16:00:00 16:19:49 NEHA ity o [facility] 2022-01-12 2022-01-12 Outpatient R AKINSIPE, [facility] [id number] Univers 16:00:00 16:19:49 NEHA ity o [facility] 2022-01-12 2022-01-12 Outpatient R AKINSIPE, [facility] [id number] Univers 16:00:00 16:19:49 NEHA ity o [facility] 2022-01-12 2022-01-12 Routine Akinsipe, [facility] 1.2.351.051 [id number] Univers 16:00:00 16:15:00 Neha C RESEARCH ANIMAL FACILITY SUPERVISOR 350.1.13.10 ity of Visit REGIONAL 4.2.7.2.686 Apolinar as MATERNAL [id number] [facility] & [address] 2022-01-12 2022-01-12 Outpatient R AKINSIPE, [facility] [id number] Univers 16:00:00 16:00:00 NEHA ity o [facility] 2022-01-12 2022-01-12 Outpatient R AKINSIPE, [facility] [id number] Univers 13:00:00 13:00:00 NEHA ity o [facility] 2021-12-29 2021-12-29 Telephone Akinsipe, [facility] 1.2.840.114 [id number] Univers 00:00:00 00:00:00 Neha C RESEARCH ANIMAL FACILITY SUPERVISOR 350.1.13.10 ity of REGIONAL 4.2.7.2.686 [place] as MATERNAL [id number] [facility] & CHILD [address] [place] [address] 2021-12-15 2021-12-15 Initial [facility] 1.2.372.597 [id number] Univers 15:00:00 16:05:56 Neha Villafuerte RESEARCH ANIMAL FACILITY SUPERVISOR 350.1.13.10 ity of [facility] 4.2.7.2.686 Apolinar as MATERNAL [phone] [facility] & CHILD [address] [place] [address] 2021-12-15 2021-12-15 [facility] [id number] Univers 14:30:00 14:51:13 NEHA novak o [facility] 2021-12-15 2021-12-15 [facility] [id number] Univers 14:30:00 14:51:13 NEHA novak o [facility] 2021-12-15 2021-12-15 Orders Doctor OLIVA 1.2.840.114 [id number] Univers 00:00:00 00:00:00 Only Unassigned, CHAD 350.1.13.10 ity of [place] [facility] 4.2.7.2.686 Apolinar as [phone] [facility] [address] 2021-08-25 2021-08-26 Emergency X [facility] ERT [id number] Univers 21:50:00 02:48:00 [facility] 2021-08-25 2021-08-26 Emergency [facility] 1..092.448 [id number] Univers 21:50:00 02:48:00 Memaria teresa [facility] 350.1.13.10 ity [facility] 4.2.7.2.686 [facility] [phone] [facility] [address] 2021-08-25 2021-08-26 Emergency X [facility] ERT [id number] Univers 21:50:00 02:48:00 [facility] 2021-07-13 2021-07-13 Telephone [facility] 1.2.840.114 [id number] Univers 00:00:00 00:00:00 Neha Villafuerte RESEARCH ANIMAL FACILITY SUPERVISOR 350.1.13.10 ity of [facility] 4.2.7.2.686 [place]olinar as MATERNAL [phone] Med ical & CHILD [address] [place] [address] 2021-06-08 2021-06-08 Emergency [facility] [id number] Univers 11:00:00 11:59:00 YANIRA ity [facility] 2021-06-08 2021-06-08 Emergency [facility] 1.2.840.114 [id number] Univers 11:00:00 11:59:00 Yanira CHRISTIANSON 350.1.13.10 ity [facility] 4.2.7.2.686 [facility] [phone] [address] 2021-06-08 2021-06-08 Emergency [facility] [id number] Univers 11:00:00 11:59:00 [facility] 2021-01-29 2021-01-29 Orders Doctor OLIVA 1.2.840.114 [id number] Univers 00:00:00 00:00:00 Only Unassigned, CHAD 350.1.13.10 ity of [place] [facility] 4.2.7.2.686 Apolinar as [id number] [address] 2021-01-13 2021-01-13 Emergency Roberto Rowland [facility] 1.2.840.114 [id number] Univers 12:49:00 19:03:00 Chapis Christianson 350.1.13.10 i ty [facility] 4.2.7.2.686 [facility] [id number] [address] 2021-01-08 2021-01-08 Orders Doctor OLIVA 1.2.840.114 [id number] Univers 00:00:00 00:00:00 Only Unassigned, CHAD 350.1.13.10 ity of [place] [facility] 4.2.7.2.686 [place]olinar as [id number] [address] 2021-01-05 2021-01-05 Emergency [facility] 1.2.227.478 [id number] Univers 12:57:00 15:44:00 Irasema Christianson 350.1.13.10 i [place] [phone] [facility] [address] 2021-01-05 2021-01-05 Orders Doctor PJ 1.2.840.114 [id number] Univers 00:00:00 00:00:00 Only Unassigned, CHAD 350.1.13.10 ity of [place] [facility] 4.2.7.2.686 Apolinar as [id number] [facility] [address] 2020-10-14 2020-10-14 Patient [facility] 1.2.840.114 [id number] Univers 00:00:00 00:00:00 Outreach Saw POMPA 350.1.13.10 i ty of [facility] [place].2.7.2.[place] [id number] [address] 2020-05-27 2020-05-27 Office [facility] 1.2.398.006 [id number] Univers 15:09:16 15:56:15 Visit Neha Villafuerte RESEARCH ANIMAL FACILITY SUPERVISOR 350.1.13.10 ity of [facility] 4.2.7.2.686 Apolinar as MATERNAL [phone] Med ical & CHILD [address] [place] [address] 2020-05-27 2020-05-27 Outpatient R DEV [facility] [id number] Univers 14:45:00 14:45:00 NEHA aragon [facility] 2020-05-22 2020-05-22 Office [facility] 1.2.179.690 [id number] Univers 14:28:25 15:36:21 Visit Neha Villafuerte RESEARCH ANIMAL FACILITY SUPERVISOR 350.1.13.10 ity of [facility] 4.2.7.2.686 [place]olinar as MATERNAL [phone] [facility] & [address] 2020-05-22 2020-05-22 [facility] [id number] Univers 14:15:00 14:15:00 NEHA aragon [facility] 2020-05-22 2020-05-22 Orders Doctor OLIVA 1.2.840.114 [id number] Univers 00:00:00 00:00:00 Only Unassigned, CHAD 350.1.13.10 ity of [place] [facility] 4.2.7.2.686 Apolinar as [phone] [facility] [address] 2020-05-19 2020-05-19 Outpatient Edmund ACEVEDO [facility] [id number] Univers 10:30:00 10:30:00 DESTINVALERIE ity o f [facility] 2020-02-01 2020-02-01 Laboratory Lab, Adc Fam Pob I [facility] 1.2. 840.114 [id number] Univers 10:14:17 10:34:17 Only Birgit Escoto [facility] 350.1.13.10 ity of [place] 4.2.7.2.686 Apolinar as Professio [phone] [facility] [address] 2020-02-01 2020-02-01 Outpatient Edmund ESCOTO [facility] [id number] Univers 10:20:00 10:20:00 BIRGIT novak [facility] 2020-02-01 2020-02-01 Letter Doctor PJ 1.2.840.114 [id number] Univers 00:00:00 00:00:00 (Out) Unassigned, CHAD 350.1.13.10 ity of [place] [facility] 4.2.7.2.686 Apolinar as [phone] [facility] [address] 2019-12-11 2019-12-11 Emergency Barnard, TRAUMA 1.2.840.114 [id number] Univers 12:35:55 13:34:00 [facility][note 3] 350.1.13.10 it [place] [id number] [facility] [address] 2019-07-03 2019-07-03 Orders Doctor PJ 1.2.840.114 [id number] Univers 00:00:00 00:00:00 Only Unassigned, CHAD 350.1.13.10 ity of [place] [facility] 4.2.7.2.686 Apolinar as [id number] [facility] [address] 2019-06-27 2019-06-28 Emergency X ARSLAN [facility] ERT [id number] Univers 22:48:25 02:15:00 IRASEMA novak of [facility] 2019-04-24 2019-04-24 Outpatient R CURTIS [facility] [id number] Univers 08:15:00 09:37:57 ROSHUNDA ity o f [facility] 2019-03-30 2019-04-02 [facility] PJ Lees 1.2.656.230 [id number] Univers 10:13:00 16:12:00 Encounter Collins BONILLA 350.1.13.10 ity of [facility] 4.2.7.2.686 [place] as [id number] [address] 2019-03-30 2019-03-30 [facility] Kesha Mccartney [facility] 1.2.840.114 [id number] Univers 02:08:00 04:50:00 Encounter Juancarlos Parmarton 350.1.13.10 ity of [place] 4.2.7.2.686 [place] [facility] [phone] [address] 2019-03-30 2019-03-30 Telephone [facility] 1.2.509.835 [id number] Univers 00:00:00 00:00:00 Roshunda R RESEARCH ANIMAL FACILITY SUPERVISOR 350.1.13.10 ity of [facility] 4.2.7.2.686 Apolinar as MATERNAL [phone] Med ical & CHILD [address] [place] [address] 2019-03-27 2019-03-27 Routine [facility] 1.2.840.114 [id number] Univers 13:22:46 13:22:46 Roshunda R RESEARCH ANIMAL FACILITY SUPERVISOR 350.1.13.10 ity of Visit [facility] 4.2.7.2.686 Apolinar as MATERNAL [id number] [facility] ical & CHILD [address] [place] [address] 2019-03-27 2019-03-27 Telephone [facility] 1.2.082.131 [id number] Univers 00:00:00 00:00:00 Roshunda R RESEARCH ANIMAL FACILITY SUPERVISOR 350.1.13.10 ity of [facility] 4.2.7.2.686 Apolinar as MATERNAL [id number] [facility] ical & CHILD [address] [place] [address] 2019-03-20 2019-03-20 Routine [facility] 1.2.840.114 [id number] Univers 12:57:40 13:34:27 Roshunda R RESEARCH ANIMAL FACILITY SUPERVISOR 350.1.13.10 ity of Visit [facility]ION[facility] 4.2.7.2.686 Apolinar as MATERNAL [phone] [facility] ical & CHILD [address] [place] [address] 2019-03-15 2019-03-15 Abstract Curtis MTSNEHAL 1.2.840.114 [id number] Univers 00:00:00 00:00:00 Roshunda R RESEARCH ANIMAL FACILITY SUPERVISOR 350.1.13.10 ity of [facility] 4.2.7.2.686 [place]olinar as MATERNAL [phone] [facility] ical & CHILD [address] [place] [address] 2019-03-14 2019-03-14 Telephone Curtis [facility] 1.2.550.201 [id number] Univers 00:00:00 00:00:00 Roshunda R RESEARCH ANIMAL FACILITY SUPERVISOR 350.1.13.10 ity of [facility] 4.2.7.2.686 Apolinar as MATERNAL [id number] [facility] & CHILD [address] [place] [address] 2019-03-13 2019-03-13 Routine Curtis [facility] 1.2.840.114 [id number] Univers 15:24:34 15:48:33 Roshunda R RESEARCH ANIMAL FACILITY SUPERVISOR 350.1.13.10 ity of Visit REGION[facility] 4.2.7.2.686 Apolinar as MATERNAL [phone] [facility] & CHILD [address] [place] [address] 2019-03-13 2019-03-13 Fixer Supervisor Ultrasound, [facility] 1.2 .840.114 [id number] Univers 14:43:37 15:23:09 Visit Cheryl Jj RESEARCH ANIMAL FACILITY SUPERVISOR 350.1.13.10 ity of [facility] 4.2.7.2.686 Apolinar as MATERNAL [phone] [facility] ical & CHILD [address] [place] [address] 2019-03-08 2019-03-08 Routine Acevedo [facility] 1.2.840.114 [id number] [facility] 13:56:33 14:29:25 Roshunda R RESEARCH ANIMAL FACILITY SUPERVISOR 350.1.13.10 ity of Visit [facility] 4.2.7.2.686 Apolinar as MATERNAL [id number] [facility] [address] [place] [address] 2019-02-22 2019-02-22 Routine Curtis MTSNEHAL 1.2.840.114 [id number] Univers 13:26:59 13:57:00 Roshunda R RESEARCH ANIMAL FACILITY SUPERVISOR 350.1.13.10 ity of Visit REGION[facility] 4.2.7.2.686 Apolinar as MATERNAL [phone] Med ical & CHILD [address] [facility] 2019-02-22 2019-02-22 Routine Curtis MTSNEHAL 1.2.840.114 [id number] 13:26:59 13:57:00 Roshunda R RESEARCH ANIMAL FACILITY SUPERVISOR 350.1.13.10 Visit REGIONAL 4.2.7.2.686 MATERNAL [id number] & CHILD [address] [place] [address] Results Test Description Test Time Test Comments Results Result Comments Source POCT URINALYSIS W SPECIFIC GRAVITY 2022-06-07 14:14:00 Test Item Value Reference Range Interpretation Comme nts POCT U SP GRAV (test code = 3255) * 1.005-1.025 POCT PH U (test code = 3254) * 5-8 POCT U LEUK EST (test code = 3263) * Negative - Negative POCT U NIT (test code = 3262) * Negative - Negative POCT U PROT (test code = 3259) TRACE Negative - Negative POCT U GLU (test code = 3256) NEGATIVE Negative - Negative POCT U KETONE (test code = 3258) * Negative - Negative POCT U UROBILI (test code = 3260) * 0.2-1 POCT U BILI (test code = 3261) * Negative - Negative POCT U BLD (test code = 3257) * Negative - Negative POCT U COLOR (test code = 3266) * POCT U APPEAR (test code = 3267) [facility] [id number] 17:59:00 Test Item Value Reference Range Interpretation Comments POCT U SP GRAV (test code = 3255) . 1.005-1.025 POCT PH U (test code = 3254) . 5-8 POCT U LEUK EST (test code = 3263) . Negative - Negative POCT U NIT (test code = 3262) . Negative - Negative POCT U PROT (test code = 3259) 1+ Negative - Negative POCT U GLU (test code = 3256) 1+ Negative - Negative POCT U KETONE (test code = 3258) . Negative - Negative POCT U UROBILI (test code = 3260) . 0.2-1 POCT U BILI (test code = 3261) . Negative - Negative POCT U BLD (test code = 3257) . Negative - Negative POCT U COLOR (test code = 3266) POCT U APPEAR (test code = 3267) [facility] URINALYSIS W SPECIFIC [id number] 17:59:00 Test Item Value Reference Range Interpretation Comments POCT U SP GRAV (test code = 3255) . 1.005-1.025 POCT PH U (test code = 3254) . 5-8 POCT U LEUK EST (test code = 3263) . Negative - Negative POCT U NIT (test code = 3262) . Negative - Negative POCT U PROT (test code = 3259) 1+ Negative - Negative POCT U GLU (test code = 3256) 1+ Negative - Negative POCT U KETONE (test code = 3258) . Negative - Negative POCT U UROBILI (test code = 3260) . 0.2-1 POCT U BILI (test code = 3261) . Negative - Negative POCT U BLD (test code = 3257) . Negative - Negative POCT U COLOR (test code = 3266) POCT U APPEAR (test code = 3267) [facility] URINALYSIS W SPECIFIC [id number] 17:59:00 Test Item Value Reference Range Interpretation Comments POCT U SP GRAV (test code = 3255) . 1.005-1.025 POCT PH U (test code = 3254) . 5-8 POCT U LEUK EST (test code = 3263) . Negative - Negative POCT U NIT (test code = 3262) . Negative - Negative POCT U PROT (test code = 3259) 1+ Negative - Negative POCT U GLU (test code = 3256) 1+ Negative - Negative POCT U KETONE (test code = 3258) . Negative - Negative POCT U UROBILI (test code = 3260) . 0.2-1 POCT U BILI (test code = 3261) . Negative - Negative POCT U BLD (test code = 3257) . Negative - Negative POCT U COLOR (test code = 3266) POCT U APPEAR (test code = 3267) [facility]
[2022-06-12] MEDS ORDERED: ACETAMINOPHEN 325 MG TABLET ONE (18:11)
[2022-06-12] MEDS ORDERED: NA CHLORIDE 0.9% 1,000 ML ONE (18:12)
[2022-06-12] MEDS ORDERED: ONDANSETRON 4 MG (ODT) TAB ONE (18:12)
[2022-06-12 18:43] LABS: Absolute Lymphocytes (CBC) 0.3 K/uL (0.7-4.9); Hematocrit 33.9 % (36.0-45.0); Lymphocytes % 3.2 % (15.3-44.8); MCV 83.8 fL (80-100); MPV 8.6 fL (7.6-11.3); RBC Red Blood Cell Count 4.05 M/uL (3.86-4.86)
[2022-06-12 18:56] LABS: Potassium 3.5 mmol/L (3.5-5.1)
[2022-06-12 19:00] LABS: Urine Blood 1+ (Negative); Urine Glucose 1+ (Negative); Urine Protein 1+ (Negative); Urine Specific Gravity >=1.030 (1.005-1.030); Urine pH 5.5 (5.0-7.0)
[2022-06-12 19:09] LABS: Urine Mucus Slight /HPF (None Seen); Urine RBC <5 /HPF (None Seen)
[2022-06-12 19:27] LABS: SARS-COV-2 RT PCR NEGATIVE (NEGATIVE)
--- NOTE | 2022-06-12 19:47 | EDPHYS ---
Physician Documentation [facility] Name: Bianca Madera Age: 27 yrs Sex: Female : 1995 Arrival Date: 06/12/2022 Time: 17:38 Bed Treatment Private MD: ED Physician Triston Yin HPI: 06/12 17:46 This 27 yrs old Female presents to ER via Ambulatory with complaints of jh7 Headache, Body Aches. 17:46 Onset: The symptoms/episode began/occurred this morning. Associated signs and symptoms: jh7 Pertinent positives: nausea, , Body aches, chills. Patient reports headache, body aches, fever, nausea, and body aches starting today. Patient's has similar symptoms. She reports that she is 30 weeks .. Historical: - Allergies: 17:44 No Known Drug Allergies; hb - Immunization history:: Adult Immunizations up to date. - Social history:: Smoking status: Patient denies any tobacco usage or history of. ROS: 17:47 Eyes: Negative for injury, pain, redness, and discharge, ENT: Negative for injury, jh7 pain, and discharge, Neck: Negative for injury, pain, and swelling, Cardiovascular: Negative for chest pain, palpitations, and edema, Respiratory: Negative for shortness of breath, cough, wheezing, and pleuritic chest pain, Back: Negative for injury and pain, MS/Extremity: Negative for injury and deformity, Skin: Negative for injury, rash, and discoloration, Neuro: Negative for headache, weakness, numbness, tingling, and seizure. 17:47 Constitutional: Positive for body aches, chills, fatigue, fever. 17:47 Abdomen/GI: Positive for nausea, Negative for vomiting, diarrhea. 17:47 All other systems are negative. Exam: 17:47 Head/Face: Normocephalic, atraumatic. Eyes: Pupils equal round and reactive to light, jh7 extra-ocular motions intact. Lids and lashes normal. Conjunctiva and sclera are non-icteric and not injected. Cornea within normal limits. Periorbital areas with no swelling, redness, or edema. ENT: Nares patent. No nasal discharge, no septal abnormalities noted. Tympanic membranes are normal and external auditory canals are clear. Oropharynx with no redness, swelling, or masses, exudates, or evidence of obstruction, uvula midline. Mucous membranes moist. Neck: Trachea midline, no thyromegaly or masses palpated, and no cervical lymphadenopathy. Supple, full range of motion without nuchal rigidity, or vertebral point tenderness. No Meningismus. Cardiovascular: Regular rate and rhythm with a normal S1 and S2. No gallops, murmurs, or rubs. Normal PMI, no JVD. No pulse deficits. Respiratory: Lungs have equal breath sounds bilaterally, clear to auscultation and percussion. No rales, rhonchi or wheezes noted. No increased work of breathing, no retractions or nasal flaring. Abdomen/GI: Soft, non-tender, with normal bowel sounds. No distension or tympany. No guarding or rebound. No evidence of tenderness throughout. Back: No spinal tenderness. No costovertebral tenderness. Full range of motion. Skin: Warm, dry with normal turgor. Normal color with no rashes, no lesions, and no evidence of cellulitis. Neuro: Awake and alert, GCS 15, oriented to person, place, time, and situation. Motor strength 5/5 in all extremities. Sensory grossly intact. Normal gait. 17:47 Constitutional: The patient appears Tired appearing Vital Signs: 17:44 BP 104 / 66; Pulse 146; Resp 18; Temp 101.7; Pulse Ox 99% ; Weight 73.03 kg; Height 5 hb ft. 2 in. (157.48 cm); Pain 9/10; 19:00 BP 101 / 46; Pulse 130; Resp 20; Pulse Ox 99% on R/A; eh3 19:47 Temp 100.0(O); eh3 17:44 Body Mass Index 29.45 (73.03 kg, 157.48 cm) hb MDM: 17:38 Patient medically screened. jh7 19:49 Differential diagnosis: Influenza, COVID. Data reviewed: vital signs, nurses notes, lab [facility] test result(s). Data interpreted: Pulse oximetry: is 99 %. Interpretation: normal. Counseling: I had a detailed discussion with the patient and/or guardian regarding: the historical points, exam findings, and any diagnostic results supporting the discharge/admit diagnosis, to return to the emergency department if symptoms worsen or persist or if there are any questions or concerns that arise at home. ED course: Although the patient tested positive for flu, her symptoms started today, her tested positive, so this is likely an influenza related illness. She will be placed on Tamiflu and prescribe Zofran for nausea. She was advised to increase her p.o. fluid intake, and take Tylenol for fever. If she develops any new concerning symptoms, or current symptoms worsen, she may return to the ER for further eval. The patient understood the plan of care.. 06/12 17:45 Order name: COVID-19/FLU A+B; Complete Time: 19:39 [facility] 06/12 17:51 Order name: BMP; Complete Time: 19:02 [facility] 06/12 17:51 Order name: CBC with Diff; Complete Time: 19:02 [facility] 06/12 17:51 Order name: Urine Microscopic Only; Complete Time: 19:23 [facility] 06/12 19:01 Order name: Urine Dipstick-Ancillary; Complete Time: 19:02 EDMS 06/12 20:04 Order name: Urine --Ancillary (enter results) wm 06/12 19:03 Order name: Recheck Vital Signs; Complete Time: 19:30 [facility] Administered Medications: 18:34 Drug: Ondansetron 4 mg Route: PO; eh3 19:03 Follow up: Response: Nausea is decreased 3 18:48 Drug: Tylenol 650 mg Route: PO; eh3 18:48 Drug: NS 0.9% 1000 ml Route: IV; Rate: 1 bolus; Site: left antecubital; eh3 Disposition Summary: 06/12/22 19:46 Discharge Ordered Location: Home [facility] Problem: new [facility] Symptoms: have improved [facility] Condition: Stable [facility] Diagnosis - Flu-like illness [facility] - Flu Exposure [facility] Followup: [facility] - With: Private Physician - When: 2 - 3 days - Reason: Recheck today's complaints Discharge Instructions: - Discharge Summary Sheet [facility] - Influenza, Adult [facility] - Influenza Tests [facility] - and Influenza [facility] Forms: - Medication Reconciliation Form [facility] - Thank You Letter [facility] Prescriptions: - ondansetron 4 mg Oral tablet,disintegrating - place 1 tablet by TRANSLINGUAL route 4 times per day As needed; 20 tablet; [facility] Refills: 0, Product Selection Permitted - Tamiflu 75 mg Oral Capsule - take 1 tablet by ORAL route every 12 hours for 5 days; 10 tablet; Refills: 0, jh7 Product Selection Permitted Addendum: 06/14/2022 17:38 Co-signature as Attending Physician, Triston Yin MD I agree with the assessment and r t plan of care. Signatures: Dispatcher [employer] Lamar Tyler, RN RN Shanna Guevara RN RN 3 Ashley Ortega, EGG PRODUCER EGG PRODUCER jh7 Triston Yin MD MD rt
--- NOTE | 2022-06-12 20:08 | ER ---
Nurse's Notes [facility] Name: Bianca Madera Age: 27 yrs Sex: Female : 1995 Arrival Date: 06/12/2022 Time: 17:38 Bed Treatment Private MD: Diagnosis: Flu-like illness;Flu Exposure Presentation: 06/12 17:43 Chief complaint: Body aches, headache, cough, nausea, and subjective fever. Pt is 30 hb weeks . Coronavirus screen: Client presents with at least one sign or symptom that may indicate coronavirus-19. Standard/surgical mask placed on the client. Provider contacted for isolation considerations. Ebola Screen: No symptoms or risks identified at this time. Risk Assessment: Do you want to hurt yourself or someone else? Patient reports no desire to harm self or others. Onset of symptoms was June 12, 2022. 17:43 Method Of Arrival: Ambulatory hb 17:43 Acuity: BELLA 3 hb Historical: - Allergies: 17:44 No Known Drug Allergies; hb - Immunization history:: Adult Immunizations up to date. - Social history:: Smoking status: Patient denies any tobacco usage or history of. Screenin:00 Abuse screen: Denies threats or abuse. Denies injuries from another. Nutritional eh3 screening: No deficits noted. Tuberculosis screening: No symptoms or risk factors identified. Fall Risk None identified. Assessment: 18:00 General: Appears in no apparent distress. uncomfortable, Behavior is calm, cooperative, eh3 appropriate for age. Pain: Denies pain. Neuro: Level of Consciousness is awake, alert, obeys commands, Oriented to person, place, time, situation. Cardiovascular: Capillary refill < 3 seconds Patient's skin is warm and dry. Respiratory: Airway is patent Respiratory effort is even, unlabored, Respiratory pattern is regular, symmetrical. GI: No signs and/or symptoms were reported involving the gastrointestinal system. : No signs and/or symptoms were reported regarding the genitourinary system. EENT: No signs and/or symptoms were reported regarding the EENT system. Derm: No signs and/or symptoms reported regarding the dermatologic system. Musculoskeletal: No signs and/or symptoms reported regarding the musculoskeletal system. 19:00 Reassessment: Patient and/or family updated on plan of care and expected duration. Pain eh3 level reassessed. Patient is alert, oriented x 3, equal unlabored respirations, skin warm/dry/pink. Patient states symptoms have improved. Vital Signs: 17:44 BP 104 / 66; Pulse 146; Resp 18; Temp 101.7; Pulse Ox 99% ; Weight 73.03 kg; Height 5 hb ft. 2 in. (157.48 cm); Pain 9/10; 19:00 BP 101 / 46; Pulse 130; Resp 20; Pulse Ox 99% on R/A; eh3 19:47 Temp 100.0(O); eh3 17:44 Body Mass Index 29.45 (73.03 kg, 157.48 cm) hb ED Course: 17:38 Patient arrived in ED. 4 17:38 Ashley Ortega FNP [facility] 7 17:38 Triston Yin MD is Attending Physician. [facility] 17:44 Triage completed. hb 18:00 Patient has correct armband on for positive identification. Call light in reach. Seated eh3 in chair. Pulse ox on. NIBP on. Door closed. Noise minimized. 18:04 Shanna Guevara, RN is Primary Nurse. eh3 18:33 COVID-19/FLU A+B Sent. iw 18:33 CBC with Diff Sent. iw 18:33 BMP Sent. iw 18:33 Inserted saline lock: 20 gauge in left antecubital area, using aseptic technique. Blood iw collected. 18:35 Arm band placed on. iw 20:07 No provider procedures requiring assistance completed. IV discontinued, intact, hb bleeding controlled, No redness/swelling at site. Administered Medications: 18:34 Drug: Ondansetron 4 mg Route: PO; eh3 19:03 Follow up: Response: Nausea is decreased eh3 18:48 Drug: Tylenol 650 mg Route: PO; eh3 18:48 Drug: NS 0.9% 1000 ml Route: IV; Rate: 1 bolus; Site: left antecubital; 3 Outcome: 19:46 Discharge ordered by . [facility] 20:07 Discharged to home ambulatory, with family. hb 20:07 Condition: stable 20:07 Discharge instructions given to patient, Instructed on discharge instructions, follow up and referral plans. medication usage, Demonstrated understanding of instructions, follow-up care, medications, Prescriptions given X 2. 20:08 Patient left the ED. hb Signatures: Ann Zamarripa, RN RN iw Lamar Howell RN RN Eladia Vale rg4 Shanna Guevara RN RN 3 Ashley Ortega, COMMERCIAL INSTALLER COMMERCIAL INSTALLER 7 Corrections: (The following items were deleted from the chart) 17:47 17:43 Acuity: BELLA 4 hb hb
[2022-06-12 20:16] LABS: Urine Specific Gravity/Preg >1.030 (1.005-1.030)
[2022-06-12 20:21] VITALS: O2SAT 99
[2022-06-12 20:35] VITALS: BP 101/46
[2022-06-12 20:36] VITALS: TEMP 100
== END 2022-06-12 20:08 | disposition home or self-care (01) ==
LOC: ER 17:31
DX: O98.513 Other viral diseases complicating pregnancy, third trimester (principal); Z3A.30 30 weeks gestation of pregnancy; Z20.822 Contact with and (suspected) exposure to COVID-19
CPT/HCPCS: 85025; 80048; 36415; 81025; 0240U; 99284; Q0162; J7030; 81003; 81015